=== PATIENT | male | born 1965 | race Caucasian/White ===

== ENCOUNTER 2024-06-15 15:07 | Observation (INO) | payer OTHER ==
[2024-06-15] MEDS ORDERED: LORazepam 2 MG/ML INJ IV PRN ×2 (15:58)
--- NOTE | 2024-06-15 16:00 | ED ---
Alcohol HPI - General Chief Complaint: Alcohol Stated Complaint: ETOH Time Seen by Provider: 06/15/24 15:23 Source: patient, EMS, RN notes reviewed, old records reviewed Mode of arrival: EMS Limitations: no limitations - History of Present Illness Initial Comments: This is a 58-year-old male to the ER for evaluation of supposed alcohol intoxication and he is afraid of impending withdrawal. 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 and does have history of stroke MD Complaint: alcohol intoxication, alcohol withdrawal Last Drink: just FLUX MIXER -: days(s) Previous Visits for Alcohol Intoxication?: Yes Recent Trauma: Yes Associated Symptoms: denies other symptoms Treatments Prior to Arrival: none Chronic Alcohol Use: Yes - Related Data Home Medications Medication Instructions Recorded Confirmed Aspirin EC [Ecotrin Low Dose] 81 mg PO DAILY 06/15/24 06/15/24 Previous Rx's Medication Instructions Recorded Nicotine 21Mg/24Hr Patch [Habitrol] 1 patch TRANSDERM DAILY patch 06/19/24 Pantoprazole [Protonix] 40 mg PO AC-BRKFST 15 Days #15 tab 06/19/24 chlordiazePOXIDE HCl [Librium] 20 mg PO TID #12 cap 06/19/24 cloNIDine HCL [Catapres] 0.1 mg PO TID #90 tab 06/19/24 lisinopriL [Zestril] 10 mg PO DAILY #30 tab 06/19/24 Allergies Allergy/AdvReac Type Severity Reaction Status Date / Time amoxicillin Allergy Anaphylaxis Verified 06/15/24 16:30 Review of Systems ROS Statement: Those systems with pertinent positive or pertinent negative responses have been documented in the HPI. ROS Other: All systems not noted in ROS Statement are negative. Past Medical History Past Medical History: COPD, Hypertension History of Any Multi-Drug Resistant Organisms: None Reported Past Psychological History: No Psychological Hx Reported Smoking Status: Current every day smoker Past Alcohol Use History: Daily, Heavy Past Drug Use History: None Reported General Exam Limitations: no limitations General appearance: appears intoxicated, anxious Head exam: Present: atraumatic, normocephalic, normal inspection Eye exam: Present: normal appearance, PERRL, EOMI. Absent: scleral icterus, conjunctival injection, periorbital swelling ENT exam: Present: normal exam, mucous membranes moist Neck exam: Present: normal inspection. Absent: tenderness, meningismus, lymphadenopathy Respiratory exam: Present: normal lung sounds bilaterally. Absent: respiratory distress, wheezes, rales, rhonchi, stridor Cardiovascular Exam: Present: regular rate, normal rhythm, normal heart sounds. Absent: systolic murmur, diastolic murmur, rubs, gallop, clicks GI/Abdominal exam: Present: soft, normal bowel sounds. Absent: distended, tenderness, guarding, rebound, rigid Extremities exam: Present: normal inspection, full ROM, normal capillary refill. Absent: tenderness, pedal edema, joint swelling, calf tenderness Back exam: Present: normal inspection Neurological exam: Present: alert, oriented X3, CN II-XII intact Psychiatric exam: Present: normal affect, normal mood Skin exam: Present: warm, dry, intact, normal color. Absent: rash Course Vital Signs 06/15/24 06/15/24 06/15/24 15:29 17:27 20:00 Temperature 98.3 F Pulse Rate 102 H 105 H 101 H Respiratory 20 20 18 Rate Blood Pressure 143/89 129/79 150/97 O2 Sat by Pulse 98 97 97 Oximetry 06/15/24 06/16/24 06/16/24 23:00 06:33 08:59 Temperature 97.7 F Pulse Rate 88 82 95 Respiratory 18 18 20 Rate Blood Pressure 162/88 185/114 192/95 O2 Sat by Pulse 97 97 96 Oximetry 06/16/24 06/16/24 06/16/24 11:00 13:00 15:25 Temperature Pulse Rate 74 93 91 Respiratory 20 20 20 Rate Blood Pressure 185/92 157/95 158/98 O2 Sat by Pulse 96 96 96 Oximetry 06/16/24 16:50 Temperature Pulse Rate 70 Respiratory 20 Rate Blood Pressure 174/86 O2 Sat by Pulse 96 Oximetry - Reevaluation(s) Reevaluation #1: 06/15/24 16:00 Medical records reviewed Reevaluation #2: 06/15/24 16:00 Patient symptoms unchanged Reevaluation #3: 06/15/24 19:06 Patient has been informed of results and questions answered Reevaluation #4: Was pt. sent in by a medical professional or institution (, PA, GREEN CHAIN OFFBEARER, urgent care, hospital, or intermediate...) When possible be specific @ -no Did you speak to anyone other than the patient for history (EMS, parent, family, police, friend...)? What history was obtained from this source @ -no Did you review nursing and triage notes (agree or disagree)? Why? @ -agree Are old charts reviewed (outside hosp., previous admission, EMS record, old EKG, old radiological studies, urgent care reports/EKG's, intermediate records)? Report findings @ -yes Differential Diagnosis (chest pain, altered mental status, abdominal pain women, abdominal pain men, vaginal bleeding, weakness, fever, dyspnea, syncope, headache, dizziness, GI bleed, back pain, seizure, CVA, palpatations, mental health, musculoskeletal)? @ -prior EKG interpreted by me (3pts min.). @ -yes X-rays interpreted by me (1pt min.). @ -no CT interpreted by me (1pt min.). @ -no U/S interpreted by me (1pt. min.). @ -no What testing was considered but not performed or refused? (CT, X-rays, U/S, labs)? Why? @ -none What meds were considered but not given or refused? Why? @ -none Did you discuss the management of the patient with other professionals (professionals i.e. , PA, [employer] CH[employer] OFFBEARER, lab, RT, psych nurse, addiction social worker, masking machine feeder, teacher, nuclear security officer, case manager specialist)? Give summary @ -no Was smoking cessation discussed for >3mins.? @ -no Was critical care preformed (if so, how long)? @ -no Were there social determinants of health that impacted care today? How? (Homelessness, low income, unemployed, alcoholism, drug addiction, transportation, low edu. Level, literacy, decrease access to med. care, long-term, rehab)? @ -none Was there de-escalation of care discussed even if they declined (Discuss DNR or withdrawal of care, Hospice)? DNR status @ -no What co-morbidities impacted this encounter? (DM, HTN, Smoking, COPD, CAD, Cancer, CVA, ARF, Chemo, Hep., AIDS, mental health diagnosis, sleep apnea, morbid obesity)? @ -none Was patient admitted / discharged? Hospital course, mention meds given and route, prescriptions, significant lab abnormalities, going to OR and other pertinent info. @ - 58 male to ER for alcohol withdrawal. Patient will be admitted for significant alcohol withdrawal tachycardia dehydration and abnormal labs Admitted Undiagnosed new problem with uncertain prognosis? @ -no Drug Therapy requiring intensive monitoring for toxicity (Heparin, Nitro, Insulin, Cardizem)? @ -no Were any procedures done? @ -no Diagnosis/symptom? @ -Alcohol withdrawal tachycardia and dehydration Acute, or Chronic, or Acute on Chronic? @ -Acute Uncomplicated (without systemic symptoms) or Complicated (systemic symptoms)? @ -Complicated Side effects of treatment? @ -no Exacerbation, Progression, or Severe Exacerbation? @ -exacerbation Poses a threat to life or bodily function? How? (Chest pain, [place], [place], pneumonia, PE, COPD, DKA, ARF, appy, cholecystitis, CVA, Diverticulitis, Homicidal, Suicidal, threat to staff... and all critical care pts) @ -yes withdrawal - Consultations Consultation #1: With Dr. Khoury who agrees to admit this patient Medical Decision Making - Medical Decision Making 58 male to ER for alcohol withdrawal. Patient will be admitted for significant alcohol withdrawal tachycardia dehydration and abnormal labs - Lab Data Result diagrams: 06/16/24 05:56 06/17/24 05:26 Lab Results 06/15/24 06/15/24 Range/Units 15:54 15:54 WBC 7.6 (3.8-10.6) k/uL RBC 3.87 L (4.30-5.90) m/uL Hgb 13.5 (13.0-17.5) gm/dL Hct 38.9 L (39.0-53.0) % MCV 100.7 H (80.0-100.0) fL MCH 35.0 (25.0-35.0) pg MCHC 34.8 (31.0-37.0) g/dL RDW 12.4 (11.5-15.5) % Plt Count 351 (150-450) k/uL MPV 7.8 Neutrophils % 59 % Lymphocytes % 30 % Monocytes % 8 % Eosinophils % 1 % Basophils % 0 % Neutrophils # 4.5 (1.3-7.7) k/uL Lymphocytes # 2.3 (1.0-4.8) k/uL Monocytes # 0.6 (0-1.0) k/uL Eosinophils # 0.1 (0-0.7) k/uL Basophils # 0.0 (0-0.2) k/uL Sodium 131 L (137-145) mmol/L Potassium 3.2 L (3.5-5.1) mmol/L Chloride 93 L (98-107) mmol/L Carbon Dioxide 23 (22-30) mmol/L Anion Gap 15 mmol/L BUN 9 (9-20) mg/dL Creatinine 0.64 L (0.66-1.25) mg/dL Est GFR (CKD-EPI)AfAm >90 (>60 ml/min/1.73 sqM) Est GFR (CKD-EPI)NonAf >90 (>60 ml/min/1.73 sqM) Glucose 146 H (74-99) mg/dL Calcium 9.4 (8.4-10.2) mg/dL Phosphorus 2.3 L (2.5-4.5) mg/dL Magnesium 1.8 (1.6-2.3) mg/dL Total Bilirubin 0.8 (0.2-1.3) mg/dL AST 41 (17-59) U/L ALT 26 (4-49) U/L Alkaline Phosphatase 113 (38-126) U/L Total Protein 7.1 (6.3-8.2) g/dL Albumin 4.7 (3.5-5.0) g/dL Lipase 90 (23-300) U/L Serum Alcohol 184 mg/dL - EKG Data -: EKG Interpreted by Me (EKG is sinus tachycardia 109 VT 157 QRS 106 QTc 439) Disposition Clinical Impression: Alcohol withdrawal syndrome, Alcoholic intoxication, Alcohol withdrawal delirium Disposition: ADMITTED IP TO THIS HOSP Condition: Fair
[2024-06-15 16:12] LABS: Basophils % (A) 0 %; Eosinophils # (A) 0.1 k/uL (0-0.7); Eosinophils % (A) 1 %; HCT 38.9 % (39.0-53.0); HGB 13.5 gm/dL (13.0-17.5); Lymphocytes # (A) 2.3 k/uL (1.0-4.8); Lymphocytes % (A) 30 %; MCHC 34.8 g/dL (31.0-37.0); MCV 100.7 fL (80.0-100.0); Mean Platelet Volume 7.8; Monocytes # (A) 0.6 k/uL (0-1.0); Monocytes % (A) 8 %; Neutrophils # (A) 4.5 k/uL (1.3-7.7); Neutrophils % (A) 59 %; Platelet Count 351 k/uL (150-450); RBC 3.87 m/uL (4.30-5.90); RDW 12.4 % (11.5-15.5); WBC 7.6 k/uL (3.8-10.6)
[2024-06-15 16:24] LABS: ALT 26 U/L (4-49); AST 41 U/L (17-59); African American GFR (CKD) >90 (>60 ml/min/1.73 sqM); Albumin 4.7 g/dL (3.5-5.0); Alkaline Phosphatase 113 U/L (38-126); Anion Gap 15 mmol/L; Blood Urea Nitrogen 9 mg/dL (9-20); Calcium 9.4 mg/dL (8.4-10.2); Carbon Dioxide 23 mmol/L (22-30); Chloride 93 mmol/L (98-107); Glucose 146 mg/dL (74-99); Lipase 90 U/L (23-300); Magnesium 1.8 mg/dL (1.6-2.3); Non-African American GFR(CKD) >90 (>60 ml/min/1.73 sqM); Phosphorus 2.3 mg/dL (2.5-4.5); Potassium 3.2 mmol/L (3.5-5.1); Sodium 131 mmol/L (137-145); Total Bilirubin 0.8 mg/dL (0.2-1.3); Total Protein 7.1 g/dL (6.3-8.2)
[2024-06-15 17:07] LABS: Alcohol 184 mg/dL
[2024-06-15] MEDS: LORazepam 2 MG/ML INJ IV STA (17:26)
[2024-06-15] MEDS: SODIUM CHLORIDE 0.9% 1,000 ML IV STA ×2 (17:27)
[2024-06-15] MEDS: SODIUM CHLORIDE 0.9% 500 ML 500 ML IV STA (17:27)
[2024-06-15] MEDS: MAGNESIUM OXIDE 400 MG TAB PO STA (18:29)
[2024-06-15] MEDS: POTASSIUM BICARBONATE/CIT AC 20 MEQ TABLET.EFF PO ONE (18:29)
[2024-06-15] MEDS ORDERED: NALOXONE 0.4 MG/ML 1 ML VIAL IV PRN (19:05)
[2024-06-15] MEDS: SODIUM CHLORIDE 0.9% 1,000 ML IV SCH (19:43)
[2024-06-15] MEDS: NICOTINE 21MG/24HR PATCH TRANSDERM SCH (20:07)
[2024-06-15] MEDS: PANTOPRAZOLE 40 MG/10 ML VIAL IV SCH (20:08)
[2024-06-15] MEDS: LORazepam 1 MG TAB PO PRN (20:16)
[2024-06-16] MEDS: ASPIRIN 81 MG PO SCH (08:56)
[2024-06-16] MEDS: LISINOPRIL-HCTZ 10-12.5 MG 1 EACH TAB PO SCH (08:56)
[2024-06-16] MEDS: LORazepam 1 MG TAB PO PRN ×2 (09:11→21:35)
[2024-06-16 10:40] LABS: Basophils # (A) 0.03 X 10*3/uL (0.00-0.10); Basophils % (A) 0.4 %; Eosinophils # (A) 0.14 X 10*3/uL (0.04-0.35); Eosinophils % (A) 1.7 %; HCT 34.5 % (39.6-50.0); HGB 12.3 g/dL (13.0-17.0); Lymphocytes # (A) 2.94 X 10*3/uL (0.90-5.00); Lymphocytes % (A) 35.9 %; MCH 35.3 pg (27.0-32.0); MCHC 35.7 g/dL (32.0-37.0); MCV 99.1 FL (80.0-97.0); Monocytes # (A) 0.81 X 10*3/uL (0.20-1.00); Monocytes % (A) 9.9 %; NRBC Per 100 WBC 0 X 10*3/uL (0.00-0.01); Neutrophils # (A) 4.26 X 10*3/uL (1.80-7.70); Neutrophils % (A) 51.9 %; Platelet Count 346 X 10*3/uL (140-440); RBC 3.48 X 10*6/uL (4.40-5.60); RDW 12.8 % (11.5-14.5)
--- NOTE | 2024-06-16 11:19 | P.HPIM ---
History of Present Illness Patient is 58-year-old male came in with for alcohol intoxication. Patient drinks about 1 gallon of hard liquor every day used to drink little bit less until 10 days ago. Patient had alcohol withdrawals in the past. Patient is presently not having any withdrawals last drink was around 2 AM today morning. Patient is willing to quit alcohol. Patient is awake alert sober at this time. REVIEW OF SYSTEMS: All other systems are negative except those mentioned in the HPI PHYSICAL EXAMINATION: GENERAL: The patient is alert and oriented x3, not in any acute distress. Well developed, well nourished. HEENT: Pupils are round and equally reacting to light. EOMI. No scleral icterus. No conjunctival pallor. Normocephalic, atraumatic. No pharyngeal erythema. No thyromegaly. CARDIOVASCULAR: S1 and S2 present. No murmurs, rubs, or gallops. PULMONARY: Chest is clear to auscultation, no wheezing or crackles. ABDOMEN: Soft, nontender, nondistended, normoactive bowel sounds. No palpable organomegaly. MUSCULOSKELETAL: No joint swelling or deformity. EXTREMITIES: No cyanosis, clubbing, or pedal edema. NEUROLOGICAL: Gross neurological examination did not reveal any focal deficits. SKIN: No rashes. Assessment and plan -Alcohol abuse: Counseling was provided social work will be consulted to provide him with resources for alcohol rehabilitation -Alcohol withdrawal patient will be on Ativan CIWA protocol -Hyponatremia: Secondary to hydrochlorothiazide which will be discontinued patient will be continued on lisinopril -Elevated blood pressure and heart rate secondary alcohol withdrawal patient was started on clonidine for this blood pressure he may not need to continue this at home -Hypokalemia: Secondary to hydrochlorothiazide potassium will be replaced -Hypertension management as mentioned above -Nicotine use: Counseling was provided -COPD without any acute exacerbation DVT prophylaxis: Early ambulation Past Medical History Past Medical History: COPD, Hypertension History of Any Multi-Drug Resistant Organisms: None Reported Past Psychological History: No Psychological Hx Reported Smoking Status: Current every day smoker Past Alcohol Use History: Daily, Heavy Past Drug Use History: None Reported Medications and Allergies Home Medications Medication Instructions Recorded Confirmed Type Aspirin EC [Ecotrin Low Dose] 81 mg PO DAILY 06/15/24 06/15/24 History Lisinopril-Hctz 10-12.5 mg 1 tab PO DAILY 06/15/24 06/15/24 History [Zestoretic 10-12.5] Allergies Allergy/AdvReac Type Severity Reaction Status Date / Time amoxicillin Allergy Anaphylaxis Verified 06/15/24 16:30 Physical Exam Vitals: Vital Signs Temp Pulse Resp BP Pulse Ox 06/16/24 11:00 74 20 185/92 96 06/16/24 08:59 95 20 192/95 96 06/16/24 06:33 97.7 F 82 18 185/114 97 06/15/24 23:00 88 18 162/88 97 06/15/24 20:00 101 H 18 150/97 97 06/15/24 17:27 105 H 20 129/79 97 06/15/24 15:29 98.3 F 102 H 20 143/89 98 Intake and Output 06/15/24 06/16/24 06/16/24 22:59 06:59 14:59 Other: Weight 74.843 kg Results CBC & Chem 7: 06/16/24 05:56 06/15/24 15:54 Labs: Abnormal Lab Results - Last 24 Hours (Table) 06/15/24 06/15/24 06/16/24 Range/Units 15:54 15:54 05:56 RBC 3.87 L 3.48 L (4.30-5.90) m/uL Hgb 12.3 L (13.0-17.0) g/dL Hct 38.9 L 34.5 L (39.0-53.0) % MCV 100.7 H 99.1 H (80.0-100.0) fL MCH 35.3 H (27.0-32.0) pg Sodium 131 L (137-145) mmol/L Potassium 3.2 L (3.5-5.1) mmol/L Chloride 93 L (98-107) mmol/L Creatinine 0.64 L (0.66-1.25) mg/dL Glucose 146 H (74-99) mg/dL Phosphorus 2.3 L (2.5-4.5) mg/dL
[2024-06-16 11:20] LABS: ALT 22 U/L (10-49); AST 30 U/L (14-35); Albumin 3.9 g/dL (3.8-4.9); Albumin/Globulin Ratio 1.95 Ratio (1.60-3.17); Alkaline Phosphatase 105 U/L (41-126); BUN/Creat Ratio 12.62 Ratio (12.00-20.00); Blood Urea Nitrogen 10.1 mg/dL (9.0-27.0); Calcium 8.6 mg/dL (8.7-10.3); Carbon Dioxide 26.5 mmol/L (21.6-31.8); Chloride 96 mmol/L (96-109); Glucose 97 mg/dL (70-110); Magnesium 1.8 mg/dL (1.5-2.4); Phosphorus 3.3 mg/dL (2.4-5.1); Potassium 4.1 mmol/L (3.5-5.5); Sodium 134 mmol/L (135-145); Total Bilirubin 0.8 mg/dL (0.3-1.2); Total Protein 5.9 g/dL (6.2-8.2)
[2024-06-16] MEDS: cloNIDine HCL 0.1 MG TAB PO SCH (15:25)
[2024-06-16] MEDS: POTASSIUM BICARBONATE/CIT AC 20 MEQ TABLET.EFF PO ONE (18:30)
[2024-06-16] MEDS: LORazepam 0.5 MG TAB PO PRN (20:00)
[2024-06-17] MEDS: lisinopriL 10 MG TAB PO SCH (08:07)
[2024-06-17] MEDS: PANTOPRAZOLE 40 MG TABLET PO SCH (08:08)
[2024-06-17 10:33] LABS: Calcium 9.2 mg/dL (8.7-10.3); Carbon Dioxide 23.8 mmol/L (21.6-31.8); Chloride 100 mmol/L (96-109); Glucose 103 mg/dL (70-110); Potassium 4.4 mmol/L (3.5-5.5); Sodium 135 mmol/L (135-145)
[2024-06-17] MEDS: LORazepam 2 MG/ML INJ IV PRN (11:07)
--- NOTE | 2024-06-17 14:23 | P.PN ---
Subjective Progress Note Date: 06/17/24 Patient is 58-year-old male came in with for alcohol intoxication. Patient drinks about 1 gallon of hard liquor every day used to drink little bit less until 10 days ago. Patient had alcohol withdrawals in the past. Patient is presently not having any withdrawals last drink was around 2 AM today morning. Patient is willing to quit alcohol. Patient is awake alert sober at this time. 06/17/2024 Patient is evaluated today resting in bed he admits to feeling shaky diaphoretic nauseous and overall not feeling well. He appears to be going through significant withdrawals at this time and we will continue to monitor this patient at least 1 more night in the hospital. He has a nicotine patch in plac e. Electrolytes have normalized. On IV Ativan CIWA protocol requiring at least 1 mg IV every couple hours today. Review of Systems Constitutional: Denied any fatigue denied any fever. Cardio vascular: denied any chest pain, palpitations Gastrointestinal: denied any nausea, vomiting, diarrhea Pulmonary: Denied any shortness of breath cough Neurologic denied any new focal deficits All inpatient medications were reviewed and appropriate changes in these medications as dictated in the interval history and assessment and plan. PHYSICAL EXAMINATION: GENERAL: The patient is alert and oriented x3, not in any acute distress. Well developed, well nourished. HEENT: Pupils are round and equally reacting to light. EOMI. No scleral icterus. No conjunctival pallor. Normocephalic, atraumatic. No pharyngeal erythema. No thyromegaly. CARDIOVASCULAR: S1 and S2 present. No murmurs, rubs, or gallops. PULMONARY: Chest is clear to auscultation, no wheezing or crackles. ABDOMEN: Soft, nontender, nondistended, normoactive bowel sounds. No palpable organomegaly. MUSCULOSKELETAL: No joint swelling or deformity. EXTREMITIES: No cyanosis, clubbing, or pedal edema. NEUROLOGICAL: Gross neurological examination did not reveal any focal deficits. Tremors with arms extended SKIN: No rashes. Assessment and plan -Alcohol abuse: Counseling was provided social work will be consulted to provide him with resources for alcohol rehabilitation -Alcohol withdrawal patient will be on Ativan CIWA protocol -Hyponatremia: Secondary to hydrochlorothiazide which will be discontinued patient will be continued on lisinopril -Elevated blood pressure and heart rate secondary alcohol withdrawal patient was started on clonidine for this blood pressure he may not need to continue this at home. Blood pressure is better controlled at this time. -Hypokalemia: Secondary to hydrochlorothiazide with supplementation potassium level has normalized. -Hypertension management as mentioned above -Nicotine use: Counseling was provided -COPD without any acute exacerbation DVT prophylaxis: Early ambulation The impression and plan of care has been dictated by Jessica Chi, Nurse Practitioner as directed. Dr. Scotty MD I have performed a history and physical examination and medical decision making of this patient, discussed the same with the dictator, and agree with the dictators assessment and plan as written, documented as a scribe. Based on total visit time, I have performed more than 50% of this visit. Objective - Vital Signs Vital signs: Vital Signs Temp 97.4 F L 06/17/24 07:00 Pulse 77 06/17/24 07:00 Resp 16 06/17/24 07:00 BP 145/74 06/17/24 07:00 Pulse Ox 98 06/17/24 07:00 FiO2 Intake & Output 06/16/24 06/17/24 06/17/24 18:59 06:59 18:59 Intake Total 118 Balance 118 Weight 74.843 kg Intake: Oral 118 Other: Voiding Method Toilet Toilet # Voids 2 - Labs CBC & Chem 7: 06/16/24 05:56 06/17/24 05:26 Assessment and Plan Time with Patient: Less than 30
--- NOTE | 2024-06-19 04:20 | P.PN ---
Subjective Progress Note Date: 06/18/24 06/16/24 Patient is 58-year-old male came in with for alcohol intoxication. Patient drinks about 1 gallon of hard liquor every day used to drink little bit less until 10 days ago. Patient had alcohol withdrawals in the past. Patient is presently not having any withdrawals last drink was around 2 AM today morning. Patient is willing to quit alcohol. Patient is awake alert sober at this time. 06/17/2024 Patient is evaluated today resting in bed he admits to feeling shaky diaphoretic nauseous and overall not feeling well. He appears to be going through significant withdrawals at this time and we will continue to monitor this patient at least 1 more night in the hospital. He has a nicotine patch in place. Electrolytes have normalized. On IV Ativan CIWA protocol requiring at least 1 mg IV every couple hours today. 06/18/2024 Patient is seen in follow-up today continues to have some signs of withdrawal with continued shaking. Patient reports he is eating a little better and has been getting up and walking to the bathroom. Patient continues on CIWA protocol and has received IV Ativan and will add Librium taper. Discussed with the patient about rehab and planning on going to an inpatient alcohol rehab in [place]. Social work to consult to provide resources for patient to call and schedule intake appointment. Patient is afebrile and denies chest pain or shortness of breath. Review of Systems Constitutional: Denied any fatigue denied any fever. Cardio vascular: denied any chest pain, palpitations Gastrointestinal: denied any nausea, vomiting, diarrhea Pulmonary: Denied any shortness of breath cough Neurologic denied any new focal deficits All inpatient medications were reviewed and appropriate changes in these medications as dictated in the interval history and assessment and plan. PHYSICAL EXAMINATION: GENERAL: The patient is alert and oriented x3, a little anxious on exam. Well developed, well nourished. Appears older than stated age HEENT: Pupils are round and equally reacting to light. EOMI. No scleral icterus. No conjunctival pallor. Normocephalic, atraumatic. No pharyngeal erythema. No thyromegaly. CARDIOVASCULAR: S1 and S2 present. No murmurs, rubs, or gallops. PULMONARY: Chest is clear to auscultation, no wheezing or crackles. ABDOMEN: Soft, nontender, nondistended, normoactive bowel sounds. No palpable organomegaly. MUSCULOSKELETAL: No joint swelling or deformity. EXTREMITIES: No cyanosis, clubbing, or pedal edema. NEUROLOGICAL: Gross neurological examination did not reveal any focal deficits. Tremors noted with arms extended SKIN: No rashes. Assessment and plan -Alcohol abuse: Counseling was provided, social work will be consulted to provide him with resources for alcohol rehabilitation. Patient reports he went to [place] previously and had a stroke there and is looking into inpatient alcohol rehab in [place] -Alcohol withdrawal, patient will continued on Ativan CIWA protocol, will add li brium -Hyponatremia: Secondary to hydrochlorothiazide which will be discontinued patient will be continued on lisinopril -Elevated blood pressure and heart rate secondary alcohol withdrawal patient was started on clonidine for this blood pressure he may not need to continue this at home. Blood pressure is better controlled at this time. -Hypokalemia: Secondary to hydrochlorothiazide with supplementation potassium level has normalized. -Hypertension management as mentioned above -Nicotine use: Counseling was provided -COPD without any acute exacerbation DVT prophylaxis: Early ambulation Plan: Continue CIWA protocol and librium Encouraged increased activity as tolerated Social work to provide resources for inpatient alcohol rehab Plan for discharge in the next 24 hours. The impression and plan of care has been dictated by Sarah Georges, Nurse Practitioner as directed. Dr. Scotty MD I have performed a history and physical examination and medical decision making of this patient, discussed the same with the dictator, and agree with the dictators assessment and plan as written, documented as a scribe. Based on total visit time, I have performed more than 50% of this visit. Objective - Vital Signs Vital signs: Vital Signs Temp 97.5 F L 06/18/24 07:00 Pulse 70 06/18/24 07:00 Resp 17 06/18/24 07:00 BP 151/63 06/18/24 07:00 Pulse Ox 96 06/18/24 07:00 FiO2 Intake & Output 06/17/24 06/18/24 06/18/24 18:59 06:59 18:59 Intake Total 354 1120 236 Balance 354 1120 236 Intake: Oral 354 1120 236 Other: Voiding Method Toilet Toilet Toilet # Voids 5 3 - Labs CBC & Chem 7: 06/16/24 05:56 06/17/24 05:26
[2024-06-19 08:46] VITALS: BP 148/56; PULSE 67; RESP 16; TEMP 97.8
--- NOTE | 2024-06-23 15:09 | P.DS ---
Providers Date of admission: 06/15/24 19:05 Expected date of discharge: 06/19/24 Attending physician: Yoni Fajardo Primary care physician: Stated None Hospital Course: Final diagnosis -Alcohol abuse history with acute alcohol withdrawal with concerns of delirium tremens -Hyponatremia: Secondary to hydrochlorothiazide -Elevated blood pressure and heart rate secondary alcohol withdrawal patient was started on clonidine for this blood pressure he may not need to continue this at home. Blood pressure is better controlled at this time. -Hypokalemia: Secondary to hydrochlorothiazide with supplementation potassium level has normalized. -Hypertension management as mentioned above -Nicotine use: Counseling was provided -COPD without any acute exacerbation Discharge disposition Patient is being discharged in a stable condition with guarded prognosis to home. Patient will follow-up with primary care provider in the outpatient setting upon discharge. Patient is to continue with as scheduled. Patient is planning an intake appointment in [place] for inpatient alcohol rehab on discharge. Patient will continue Librium taper. Total time taken is greater than 35 minutes. Hospital course This is a 58-year-old male who was recently admitted with acute alcohol abuse with acute alcohol withdrawal with concerns of delirium tremens. Patient being monitored on CIWA protocol also started on Librium taper reports to feeling improved. Patient was having some uncontrolled blood pressures and also hyponatremia along with hypokalemia probably secondary to his hydrochlorothiazide which will be held and will continue lisinopril. Instructed to follow-up with primary care provider on discharge and monitor blood pressure by keeping a diary daily of readings for follow-up. Patient will continue a short Librium taper on dc. Currently no reports of chest pain, shortness of breath, or palpitations. Patient is afebrile. No reports of nausea or vomiting and patient is tolerating diet. Patient will be discharged home today. Guarded prognosis. Physical exam: Gen: This is a 58-year-old male who is awake, alert and oriented x 3, well- developed, well-nourished, elderly appearing HEENT: Head is atraumatic, normocephalic. Pupils equal, round. Sclerae is anicteric. NECK: Supple. No JVD. No lymphadenopathy. No thyromegaly. LUNGS: Clear to auscultation. No wheezes or rhonchi. No intercostal retractions. HEART: Regular rate and rhythm. No murmur. ABDOMEN: Soft. Bowel sounds are present. No masses. No tenderness. EXTREMITIES: No pedal edema. No calf tenderness. NEUROLOGICAL: Patient is awake, alert and oriented x3. Cranial nerves 2 through 12 are grossly intact. Please refer to medication reconciliation sheet for a list of medications. The impression and plan of care has been dictated by Sarah Georges, Nurse Practitioner as directed. Dr. Scotty MD I have performed a history and examination and MDM of this patient, discussed the same with the dictator, and agree with the dictator's assessment and plan as written ,documented as a scribe. Based on total visit time, I have performed more than 50% of the visit. Patient Condition at Discharge: Fair Plan - Discharge Summary Discharge Rx Participant: No New Discharge Prescriptions: New Nicotine 21Mg/24Hr Patch [Habitrol] 1 patch TRANSDERM DAILY patch cloNIDine HCL [Catapres] 0.1 mg PO TID #90 tab chlordiazePOXIDE HCl [Librium] 20 mg PO TID #12 cap Pantoprazole [Protonix] 40 mg PO AC-BRKFST 15 Days #15 tab lisinopriL [Zestril] 10 mg PO DAILY #30 tab Continue Aspirin EC [Ecotrin Low Dose] 81 mg PO DAILY Discontinued Lisinopril-Hctz 10-12.5 mg [Zestoretic 10-12.5] 1 tab PO DAILY Discharge Medication List Aspirin EC [Ecotrin Low Dose] 81 mg PO DAILY 06/15/24 [History] Nicotine 21Mg/24Hr Patch [Habitrol] 1 patch TRANSDERM DAILY patch 06/19/24 [Rx] Pantoprazole [Protonix] 40 mg PO AC-BRKFST 15 Days #15 tab 06/19/24 [Rx] chlordiazePOXIDE HCl [Librium] 20 mg PO TID #12 cap 06/19/24 [Rx] cloNIDine HCL [Catapres] 0.1 mg PO TID #90 tab 06/19/24 [Rx] lisinopriL [Zestril] 10 mg PO DAILY #30 tab 06/19/24 [Rx] Follow up Appointment(s)/Referral(s): Mahesh Ramos DO [REFERRING] - 1 Week (Call and make an appointment to establish) Activity/Diet/Wound Care/Special Instructions: Activity limited until follow-up Follow-up with primary care provider to establish on discharge Continue taking medications as prescribed Monitor blood pressure and keep a diary of all readings If blood pressure becomes too low and top number(systolic) is 110 or less, hold the Catapres and continue with just lisinopril Avoid alcohol and exposure to Follow-up outpatient with inpatient alcohol rehab Discharge/Stand Alone Forms: AA Meetings [facility] & 24 - [facility], AA Meetings [facility], Who Do I Call?, Community Resources, Outpatient Counseling, Inp Substance Abuse Facilities, Area PCPs Discharge Disposition: HOME SELF-CARE
== END 2024-06-19 12:35 | disposition home or self-care (01) ==
LOC: EC 15:07 → 6NMEDSUR 19:05
PROVIDERS: ADMIT Internal Medicine; ATTEND Internal Medicine
DX: F10.239 Alcohol dependence with withdrawal, unspecified (principal); F10.229 Alcohol dependence with intoxication, unspecified; E87.1 Hypo-osmolality and hyponatremia; E87.6 Hypokalemia; T50.2X5A Adverse effect of carbonic-anhydrase inhibitors, benzothiadiazides and other diuretics, initial encounter; I10 Essential (primary) hypertension; J44.9 Chronic obstructive pulmonary disease, unspecified; F17.200 Nicotine dependence, unspecified, uncomplicated; Z79.82 Long term (current) use of aspirin; Z86.73 Personal history of transient ischemic attack (TIA), and cerebral infarction without residual deficits; Z88.0 Allergy status to penicillin
CPT/HCPCS: 96376 ×2; 96361 ×3; 96374; 96375; 99285; 36415; 93005; 80053 ×2; 80048; 83690; 83735 ×2; 84100 ×2; 85025 ×2; G0378 ×5; G0480; S4990 ×4; J2060 ×2; J2470 ×2; 80320

== ENCOUNTER 2024-06-30 23:09 | Observation (INO) | payer OTHER ==
--- NOTE | 2024-07-01 00:15 | ED ---
Alcohol HPI - General Chief Complaint: Alcohol Stated Complaint: ETOH Time Seen by Provider: 06/30/24 23:21 Source: patient, EMS, RN notes reviewed Mode of arrival: EMS Limitations: no limitations - History of Present Illness Initial Comments: This is a 58-year-old male who presents emergency department via EMS for chief complaint of alcohol intoxication. Patient reports that his daughter called EMS to arrive at the patient's house as he was acting strange on the phone and is reported that he was hallucinating. Patient states that he drinks alcohol every day upwards of 1/5. States that he consumed over 1/5 of alcohol in addition to 424 ounce cans of beer. States that he also used drugs including cocaine and possibly crack. Patient states now that he feels mildly anxious. Has gone through alcohol withdrawal in the past, denies history of DTs. patient would like to go to rehab, - Related Data Home Medications Medication Instructions Recorded Confirmed Aspirin EC [Ecotrin Low Dose] 81 mg PO DAILY 06/15/24 06/15/24 Previous Rx's Medication Instructions Recorded Nicotine 21Mg/24Hr Patch [Habitrol] 1 patch TRANSDERM DAILY patch 06/19/24 Pantoprazole [Protonix] 40 mg PO AC-BRKFST 15 Days #15 tab 06/19/24 chlordiazePOXIDE HCl [Librium] 20 mg PO TID #12 cap 06/19/24 cloNIDine HCL [Catapres] 0.1 mg PO TID #90 tab 06/19/24 lisinopriL [Zestril] 10 mg PO DAILY #30 tab 06/19/24 Allergies Allergy/AdvReac Type Severity Reaction Status Date / Time amoxicillin Allergy Anaphylaxis Verified 06/30/24 23:13 Review of Systems ROS Statement: Those systems with pertinent positive or pertinent negative responses have been documented in the HPI. ROS Other: All systems not noted in ROS Statement are negative. Past Medical History Past Medical History: COPD, Hypertension History of Any Multi-Drug Resistant Organisms: None Reported Additional Past Surgical History / Comment(s): "piece of pancreas removed" Past Psychological History: No Psychological Hx Reported Smoking Status: Current every day smoker Past Alcohol Use History: Daily, Heavy Past Drug Use History: None Reported General Exam Limitations: no limitations General appearance: alert, in no apparent distress, appears intoxicated Head exam: Present: atraumatic, normocephalic, normal inspection Eye exam: Present: normal appearance, PERRL, EOMI. Absent: scleral icterus, conjunctival injection, periorbital swelling Respiratory exam: Present: normal lung sounds bilaterally. Absent: respiratory distress, wheezes, rales, rhonchi, stridor Cardiovascular Exam: Present: normal rhythm, tachycardia, normal heart sounds. Absent: systolic murmur, diastolic murmur, rubs, gallop, clicks GI/Abdominal exam: Present: soft, normal bowel sounds. Absent: distended, tenderness, guarding, rebound, rigid Extremities exam: Present: normal inspection, full ROM, normal capillary refill. Absent: tenderness, pedal edema, joint swelling, calf tenderness Back exam: Present: normal inspection Neurological exam: Present: alert, oriented X3, CN II-XII intact Course Vital Signs 06/30/24 07/01/24 07/01/24 23:10 00:00 03:00 Temperature 98.3 F Pulse Rate 118 H 113 H 117 H Respiratory 20 17 18 Rate Blood Pressure 186/91 157/77 170/93 O2 Sat by Pulse 99 97 96 Oximetry Medical Decision Making - Medical Decision Making Was pt. sent in by a medical professional or institution (, PA, COSTUMER, urgent care, hospital, or snf...) When possible be specific @ -No Did you speak to anyone other than the patient for history (EMS, parent, family, police, friend...)? What history was obtained from this source @ -No Did you review nursing and triage notes (agree or disagree)? Why? @ -I reviewed and agree with nursing and triage notes Were old charts reviewed (outside hosp., previous admission, EMS record, old EKG, old radiological studies, urgent care reports/EKG's, snf records)? Report findings @ -No old charts were reviewed Differential Diagnosis (chest pain, altered mental status, abdominal pain women, abdominal pain men, vaginal bleeding, weakness, fever, dyspnea, syncope, headache, dizziness, GI bleed, back pain, seizure, CVA, palpatations, mental health, musculoskeletal)? @ -Alcohol intoxication, alcohol abuse, drug abuse, this list not all inclusive EKG interpreted by me (3pts min.). @ -none X-rays interpreted by me (1pt min.). @ -None done CT interpreted by me (1pt min.). @ -None done U/S interpreted by me (1pt. min.). @ -None done What testing was considered but not performed or refused? (CT, X-rays, U/S, labs)? Why? @ -None What meds were considered but not given or refused? Why? @ -None Did you discuss the management of the patient with other professionals (professionals i.e. DrVasquez, PA, COSTUMER, lab, RT, psych nurse, professor of social work, boiler blower, teacher, penal officer, ed case manager)? Give summary @ -internal medicine team, [facility] in regard to admission who has accepted the patient. Was smoking cessation discussed for >3mins.? @ -No Was critical care preformed (if so, how long)? @ -No Were there social determinants of health that impacted care today? How? (Homelessness, low income, unemployed, alcoholism, drug addiction, transportation, low edu. Level, literacy, decrease access to med. care, long term, rehab)? @ -No Was there de-escalation of care discussed even if they declined (Discuss DNR or withdrawal of care, Hospice)? DNR status @ -No What co-morbidities impacted this encounter? (DM, HTN, Smoking, COPD, CAD, Cancer, CVA, ARF, Chemo, Hep., AIDS, mental health diagnosis, sleep apnea, morbid obesity)? @ -None Was patient admitted / discharged? Hospital course, mention meds given and route, prescriptions, significant lab abnormalities, going to OR and other pertinent info. @ -Admitted. 58-year-old male with alcohol intoxication. Patient is noted to be tachycardic on arrival with a heart rate of 118 and hypertensive with a blood pressure 186/91. Patient currently states that he feels mildly anxious however this is common for him. Dates that he normally drinks over 1/5 of liquor per day. Is provided with dose of oral Ativan and IV fluid bolus pending laboratory results. He is agree with this plan. Patient's serum alcohol level is elevated to 344 that correlates to a time of sober at 1500. Patient's urine toxicology report reveals positive for benzodiazepines and cocaine. Patient will be admitted to internal medicine for alcohol intoxication with referral to social work. Case discussed with Dr. Hernandez Undiagnosed new problem with uncertain prognosis? @ -No Drug Therapy requiring intensive monitoring for toxicity (Heparin, Nitro, I nsulin, Cardizem)? @ -No Were any procedures done? @ -No Diagnosis/symptom? @ -alcohol abuse, alcohol intoxication Acute, or Chronic, or Acute on Chronic? @ -Acute Uncomplicated (without systemic symptoms) or Complicated (systemic symptoms)? @ -complicated Side effects of treatment? @ -No Exacerbation, Progression, or Severe Exacerbation? @ -No Poses a threat to life or bodily function? How? (Chest pain, [place], [place], pneumonia, PE, COPD, DKA, ARF, appy, cholecystitis, CVA, Diverticulitis, Homicidal, Suicidal, threat to staff... and all critical care pts) @ -No - Lab Data Result diagrams: 07/01/24 00:16 07/01/24 00:16 Lab Results 07/01/24 07/01/24 07/01/24 Range/Units 00:16 00:16 00:53 WBC 9.4 (3.8-10.6) k/uL RBC 3.92 L (4.30-5.90) m/uL Hgb 13.6 (13.0-17.5) gm/dL Hct 39.5 (39.0-53.0) % MCV 100.8 H (80.0-100.0) fL MCH 34.6 (25.0-35.0) pg MCHC 34.4 (31.0-37.0) g/dL RDW 12.8 (11.5-15.5) % Plt Count 375 (150-450) k/uL MPV 7.4 Neutrophils % 45 % Lymphocytes % 47 % Monocytes % 4 % Eosinophils % 2 % Basophils % 1 % Neutrophils # 4.2 (1.3-7.7) k/uL Lymphocytes # 4.4 (1.0-4.8) k/uL Monocytes # 0.4 (0-1.0) k/uL Eosinophils # 0.2 (0-0.7) k/uL Basophils # 0.1 (0-0.2) k/uL Sodium 142 (137-145) mmol/L Potassium 4.3 (3.5-5.1) mmol/L Chloride 105 (98-107) mmol/L Carbon Dioxide 30 (22-30) mmol/L Anion Gap 7 mmol/L BUN 11 (9-20) mg/dL Creatinine 0.71 (0.66-1.25) mg/dL Est GFR (CKD-EPI)AfAm >90 (>60 ml/min/1.73 sqM) Est GFR (CKD-EPI)NonAf >90 (>60 ml/min/1.73 sqM) Glucose 125 H (74-99) mg/dL Calcium 9.4 (8.4-10.2) mg/dL Phosphorus Cancelled Magnesium 1.8 (1.6-2.3) mg/dL Total Bilirubin 0.2 (0.2-1.3) mg/dL AST 39 (17-59) U/L ALT 23 (4-49) U/L Alkaline Phosphatase 124 (38-126) U/L Total Protein 7.0 (6.3-8.2) g/dL Albumin 4.4 (3.5-5.0) g/dL Lipase 76 (23-300) U/L Urine Opiates Screen Not Detected (NotDetected) Ur Oxycodone Screen Not Detected (NotDetected) Urine Methadone Screen Not Detected (NotDetected) Ur Barbiturates Screen Not Detected (NotDetected) U Tricyclic Antidepress Not Detected (NotDetected) Ur Phencyclidine Scrn Not Detected (NotDetected) Ur Amphetamines Screen Not Detected (NotDetected) U Methamphetamines Scrn Not Detected (NotDetected) U Benzodiazepines Scrn Detected H (NotDetected) Urine Cocaine Screen Detected H (NotDetected) U Marijuana (THC) Screen Not Detected (NotDetected) Serum Alcohol 334 H* mg/dL Disposition Clinical Impression: Alcohol abuse, Alcohol intoxication Disposition: ADMITTED IP TO THIS [facility] Condition: Stable Referrals: None,Stated [Primary Care Provider] - 1-2 days Decision to Admit Reason: Admit from EC Decision Date: 07/01/24 Decision Time: 03:19
[2024-07-01] MEDS: LORazepam 1 MG TAB PO STA ×2 (00:30→03:21)
[2024-07-01] MEDS: SODIUM CHLORIDE 0.9% 1,000 ML IV STA (00:31)
[2024-07-01 01:03] LABS: Basophils # (A) 0.1 k/uL (0-0.2); Basophils % (A) 1 %; Eosinophils # (A) 0.2 k/uL (0-0.7); Eosinophils % (A) 2 %; HCT 39.5 % (39.0-53.0); HGB 13.6 gm/dL (13.0-17.5); Lymphocytes # (A) 4.4 k/uL (1.0-4.8); Lymphocytes % (A) 47 %; MCH 34.6 pg (25.0-35.0); MCHC 34.4 g/dL (31.0-37.0); MCV 100.8 fL (80.0-100.0); Mean Platelet Volume 7.4; Monocytes # (A) 0.4 k/uL (0-1.0); Monocytes % (A) 4 %; Neutrophils # (A) 4.2 k/uL (1.3-7.7); Neutrophils % (A) 45 %; Platelet Count 375 k/uL (150-450); RBC 3.92 m/uL (4.30-5.90); RDW 12.8 % (11.5-15.5); WBC 9.4 k/uL (3.8-10.6)
[2024-07-01 01:21] LABS: ALT 23 U/L (4-49); AST 39 U/L (17-59); African American GFR (CKD) >90 (>60 ml/min/1.73 sqM); Albumin 4.4 g/dL (3.5-5.0); Alkaline Phosphatase 124 U/L (38-126); Anion Gap 7 mmol/L; Blood Urea Nitrogen 11 mg/dL (9-20); Calcium 9.4 mg/dL (8.4-10.2); Carbon Dioxide 30 mmol/L (22-30); Chloride 105 mmol/L (98-107); Glucose 125 mg/dL (74-99); Lipase 76 U/L (23-300); Magnesium 1.8 mg/dL (1.6-2.3); Non-African American GFR(CKD) >90 (>60 ml/min/1.73 sqM); Potassium 4.3 mmol/L (3.5-5.1); Sodium 142 mmol/L (137-145); Total Bilirubin 0.2 mg/dL (0.2-1.3)
[2024-07-01 01:54] LABS: Alcohol 334 mg/dL
[2024-07-01 02:01] LABS: Amphetamine Screen,Urine Not Detected (NotDetected); Barbiturate Screen,Urine Not Detected (NotDetected); Benzodiazepines Screen,Urine Detected (NotDetected); Cocaine Screen,Urine Detected (NotDetected); Methadone Screen, Urine Not Detected (NotDetected); Opiate Screen,Urine Not Detected (NotDetected); Oxycodone Screen, Urine Not Detected (NotDetected); Phencyclidine Screen,Urine Not Detected (NotDetected); Tricyclic Antidepressant,Urine Not Detected (NotDetected); Urn Cannabinoid Scrn Not Detected (NotDetected)
[2024-07-01] MEDS ORDERED: LORazepam 2 MG/ML INJ IV PRN (03:08)
[2024-07-01] MEDS ORDERED: NALOXONE 0.4 MG/ML 1 ML VIAL IV PRN (03:19)
[2024-07-01] MEDS: SODIUM CHLORIDE 0.9% 1,000 ML IV SCH (04:37)
[2024-07-01] MEDS: IBUPROFEN 400 MG TAB PO PRN (05:50)
[2024-07-01] MEDS: LORazepam 1 MG TAB PO PRN ×2 (05:51→08:12)
[2024-07-01] MEDS: NICOTINE 21MG/24HR PATCH TRANSDERM SCH (08:53)
[2024-07-01] MEDS: ASPIRIN 81 MG PO SCH (08:53)
[2024-07-01] MEDS: PANTOPRAZOLE 40 MG TABLET PO SCH (08:53)
[2024-07-01] MEDS: lisinopriL 10 MG TAB PO SCH (08:53)
[2024-07-01] MEDS: cloNIDine HCL 0.1 MG TAB PO SCH (09:47)
--- NOTE | 2024-07-01 13:34 | P.HPIM ---
History of Present Illness H&P Date: 07/01/24 History of present illness; patient 58-year-old gentleman with past medical history significant for hypertension who was brought to the ER for alcohol intoxication. Patient was brought to the ER after daughter called EMS to check on him as he was acting strange on the phone. Patient admitted to drinking heavily and was using cocaine and marijuana. Patient admitted to drinking 1/5 of alcohol in addition to beer. Denies any suicidal or homicidal thoughts. Patient denies any nausea or vomiting. There is no complaint orthopnea or PND denies any chest pain or shortness of breath. Because of alcohol intoxication, patient brought to the ER Initial lab work done in the ER showed WBC 9.4, hemoglobin 13.6, sodium 142, potassium 4.3, BUN 11, creatinine 0.71, calcium 9.4, magnesium 1.8, bilirubin 0.2 Urine drug screen positive for benzos and cocaine. Serum alcohol level is 334 Patient admitted to internal medicine service REVIEW OF SYSTEMS: CONSTITUTIONAL: No fever, no malaise, no fatigue. HEENT: No recent visual problems or hearing problems. Denied any sore throat. CARDIOVASCULAR: No chest pain, orthopnea, PND, no palpitations, no syncope. PULMONARY: No shortness of breath, no cough, no hemoptysis. GASTROINTESTINAL: No diarrhea, no nausea, no vomiting, no abdominal pain. NEUROLOGICAL: No headaches, no weakness, no numbness. HEMATOLOGICAL: Denies any bleeding or petechiae. GENITOURINARY: Denies any burning micturition, frequency, or urgency. MUSCULOSKELETAL/RHEUMATOLOGICAL: Denies any joint pain, swelling, or any muscle pain. ENDOCRINE: Denies any polyuria or polydipsia. The rest of the 14-point review of systems is negative. PHYSICAL EXAMINATION: GENERAL: The patient is alert and oriented x3, not in any acute distress shaky, anxious HEENT: Pupils are round and equally reacting to light. EOMI. No scleral icterus. No conjunctival pallor. Normocephalic, atraumatic. No pharyngeal erythema. No thyromegaly. CARDIOVASCULAR: S1 and S2 present. No murmurs, rubs, or gallops. PULMONARY: Chest is clear to auscultation, no wheezing or crackles. ABDOMEN: Soft, nontender, nondistended, normoactive bowel sounds. No palpable organomegaly. MUSCULOSKELETAL: No joint swelling or deformity. EXTREMITIES: No cyanosis, clubbing, or pedal edema. NEUROLOGICAL: Gross neurological examination did not reveal any focal deficits. SKIN: No rashes. Assessment and plan Alcohol intoxication Impending alcohol detox Polysubstance abuse Monitor vital signs Monitor CBC Monitor CMP Ordered CIWA protocol Ordered high-dose thiamine and folic acid Ordered antiemetics Ordered IV fluids Resume home meds Labs and medication were reviewed.. Continue same treatment. Continue with symptomatic treatment. Resume home medication. Monitor labs and vitals. DVT and GI prophylaxis. Further recommendations as per clinical course of the patient Dictation was produced using [employer] dictation software. please excuse any grammatical, word or spelling errors. Past Medical History Past Medical History: COPD, Hypertension History of Any Multi-Drug Resistant Organisms: None Reported Additional Past Surgical History / Comment(s): "piece of pancreas removed" Past Psychological History: No Psychological Hx Reported Smoking Status: Current every day smoker Past Alcohol Use History: Daily, Heavy Past Drug Use History: None Reported Medications and Allergies Home Medications Medication Instructions Recorded Confirmed Type Aspirin EC [Ecotrin Low Dose] 81 mg PO DAILY 06/15/24 07/01/24 History Nicotine 21Mg/24Hr Patch [Habitrol] 1 patch TRANSDERM DAILY patch 06/19/24 07/01/24 Rx Pantoprazole [Protonix] 40 mg PO AC-BRKFST 15 Days #15 tab 06/19/24 07/01/24 Rx cloNIDine HCL [Catapres] 0.1 mg PO TID #90 tab 06/19/24 07/01/24 Rx lisinopriL [Zestril] 10 mg PO DAILY #30 tab 06/19/24 07/01/24 Rx methocarbamoL [Robaxin-750] 750 mg PO Q6H PRN 07/01/24 07/01/24 History Allergies Allergy/AdvReac Type Severity Reaction Status Date / Time amoxicillin Allergy Anaphylaxis Verified 07/01/24 12:07 Physical Exam Vitals: Vital Signs Temp Pulse Pulse Resp BP BP Pulse Ox 07/01/24 09:46 98 186/91 07/01/24 08:06 98 192/98 07/01/24 08:00 101 H 07/01/24 07:00 98.6 F 102 H 18 194/97 95 07/01/24 04:51 98.6 F 112 H 16 171/98 97 07/01/24 04:38 98.3 F 113 H 18 165/94 96 07/01/24 03:00 117 H 18 170/93 96 07/01/24 00:00 113 H 17 157/77 97 06/30/24 23:10 98.3 F 118 H 20 186/91 99 Intake and Output 06/30/24 07/01/24 07/01/24 22:59 06:59 14:59 Intake Total 118 Balance 118 Intake: Oral 118 Other: # Voids 1 Weight 68.039 kg Results CBC & Chem 7: 07/01/24 00:16 07/01/24 00:16 Labs: Abnormal Lab Results - Last 24 Hours (Table) 07/01/24 07/01/24 07/01/24 Range/Units 00:16 00:16 00:53 RBC 3.92 L (4.30-5.90) m/uL MCV 100.8 H (80.0-100.0) fL Glucose 125 H (74-99) mg/dL U Benzodiazepines Scrn Detected H (NotDetected) Urine Cocaine Screen Detected H (NotDetected) Serum Alcohol 334 H* mg/dL
[2024-07-01] MEDS ORDERED: THIAMINE 100 MG TAB PO SCH (16:00)
[2024-07-01] MEDS: THIAMINE 500 MG in SODIUM CHLORIDE 0.9% 50 ML IVPB SCH (17:07)
[2024-07-02] MEDS: LORazepam 2 MG/ML INJ IV PRN ×2 (01:08→14:17)
[2024-07-02] MEDS: MELATONIN 5 MG TABLET PO PRN (01:39)
[2024-07-02] MEDS: amLODIPine 5 MG TAB PO STA (01:39)
[2024-07-02] MEDS: amLODIPine 5 MG TAB PO SCH (08:54)
[2024-07-02] MEDS: FOLIC ACID 1 MG TAB PO SCH (08:54)
[2024-07-02] MEDS: LORazepam 1 MG TAB PO PRN (10:32)
--- NOTE | 2024-07-02 13:39 | P.PN ---
Subjective Progress Note Date: 07/02/24 patient 58-year-old gentleman with past medical history significant for hypertension who was brought to the ER for alcohol intoxication. Patient was brought to the ER after daughter called EMS to check on him as he was acting strange on the phone. Patient admitted to drinking heavily and was using coca ine and marijuana. Patient admitted to drinking 1/5 of alcohol in addition to beer. Denies any suicidal or homicidal thoughts. Patient denies any nausea or vomiting. There is no complaint orthopnea or PND denies any chest pain or shortness of breath. Because of alcohol intoxication, patient brought to the ER Initial lab work done in the ER showed WBC 9.4, hemoglobin 13.6, sodium 142, potassium 4.3, BUN 11, creatinine 0.71, calcium 9.4, magnesium 1.8, bilirubin 0.2 Urine drug screen positive for benzos and cocaine. Serum alcohol level is 334 Patient admitted to internal medicine service 07/02. Patient seen and examined. Last CIWA score was 3. Patient blood pressure has been elevated. REVIEW OF SYSTEMS: CONSTITUTIONAL: No fever, no malaise,. CARDIOVASCULAR: No chest pain, no palpitations, no syncope. PULMONARY: No shortness of breath, no cough, GASTROINTESTINAL: No diarrhea, no nausea, no vomiting, no abdominal pain. NEUROLOGICAL: No headaches, no weakness, PHYSICAL EXAMINATION: GGENERAL: The patient is alert and oriented x3, not in any acute distress shaky, anxious HEENT: Pupils are round and equally reacting to light. EOMI. No scleral icterus. No conjunctival pallor. Normocephalic, atraumatic. No pharyngeal erythema. No thyromegaly. CARDIOVASCULAR: S1 and S2 present. No murmurs, rubs, or gallops. PULMONARY: Chest is clear to auscultation, no wheezing or crackles. ABDOMEN: Soft, nontender, nondistended, normoactive bowel sounds. No palpable organomegaly. MUSCULOSKELETAL: No joint swelling or deformity. EXTREMITIES: No cyanosis, clubbing, or pedal edema. NEUROLOGICAL: Gross neurological examination did not reveal any focal deficits. SKIN: No rashes. Assessment and plan Alcohol intoxication Impending alcohol detox Polysubstance abuse Hypertension Monitor vital signs Monitor CBC Monitor CMP Continue CIWA protocol Continue high-dose thiamine and folic acid Continue IV fluids continue antiemetics Resume lisinopril, started patient on Norvasc Labs and medication were reviewed.. Continue same treatment. Continue with symptomatic treatment. Resume home medication. Monitor labs and vitals. DVT and GI prophylaxis. Further recommendations as per clinical course of the patient Dictation was produced using [employer] dictation software. please excuse any grammatical, word or spelling errors. Objective - Vital Signs Vital signs: Vital Signs Temp 97.9 F 07/02/24 07:00 Pulse 68 07/02/24 07:00 Resp 15 07/02/24 07:00 BP 175/97 07/02/24 07:00 Pulse Ox 98 07/02/24 07:00 FiO2 Intake & Output 07/01/24 07/02/24 07/02/24 19:59 06:59 18:59 Intake Total Output Total Balance Intake: Oral Output: Urine Other: # Voids # Bowel Movements - Labs CBC & Chem 7: 07/01/24 00:16 07/01/24 00:16
[2024-07-02] MEDS: hydrALAZINE HCL 20 MG/ML 1 ML VIAL IVP PRN (15:32)
[2024-07-02] MEDS: LORazepam 0.5 MG TAB PO PRN (20:21)
[2024-07-03 07:14] VITALS: BP 164/94; TEMP 97.8
[2024-07-03 09:09] VITALS: PULSE 72; RESP 16
--- NOTE | 2024-07-04 14:00 | P.DS ---
Providers Date of admission: 07/01/24 03:19 Attending physician: Genet Pastrana Primary care physician: Stated None Hospital Course: Final Diagnosis Alcohol intoxication Impending alcohol detox Polysubstance abuse Hypertension Discharge Disposition Stable for discharge home with overall guarded prognosis secondary to his chronic history of alcoholism. Patient's withdrawal symptoms have significantly improved he is agreeing to maintain abstinence from alcohol. We discharged on folic acid and thiamine supplementation. He will continue all same home medications and will be given 3 days of oral Ativan therapy. Was referred to Dr. Mahesh Meadows for family care and will need to make an appointment on discharge. Hospital Course patient 58-year-old gentleman with past medical history significant for hypertension who was brought to the ER for alcohol intoxication. Patient was brought to the ER after daughter called EMS to check on him as he was acting strange on the phone. Patient admitted to drinking heavily and was using cocaine and marijuana. Patient admitted to drinking 1/5 of alcohol in addition to beer. Denies any suicidal or homicidal thoughts. Patient denies any nausea or vomiting. There is no complaint orthopnea or PND denies any chest pain or shortness of breath. Because of alcohol intoxication, patient brought to the ER. Initial lab work done in the ER showed WBC 9.4, hemoglobin 13.6, sodium 142, potassium 4.3, BUN 11, creatinine 0.71, calcium 9.4, magnesium 1.8, bilirubin 0.2. Urine drug screen positive for benzos and cocaine. Serum alcohol level is 334. Patient admitted to internal medicine service started on IV Ativan CIWA protocol as well as scheduled Librium. Patient was monitored for 2 days had significant improvement in his alcohol withdrawal symptoms. His last CIWA score is around 5 and he is requiring Ativan about every 8 hours. He is tolerating diet. He would like to be discharged home today he discussed the importance of maintaining abstinence from alcohol and other substance abuse and patient v erbalizes agreement and states that he would like to discharge home with oral Ativan and his family support. Please see medication reconciliation for a list of current medications. Thank you for allowing us to participate in the care of this patient. The impression and plan of care has been dictated by Jessica Chi, Nurse Practitioner as directed. Dr. Scotty MD I have performed a history and physical examination and medical decision making of this patient, discussed the same with the dictator, and agree with the dictators assessment and plan as written, documented as a scribe. Based on total visit time, I have performed more than 50% of this visit. Patient Condition at Discharge: Stable Plan - Discharge Summary Discharge Rx Participant: No New Discharge Prescriptions: New Folic Acid 1 mg PO DAILY #30 tab amLODIPine [Norvasc] 5 mg PO DAILY #30 tab LORazepam [Ativan] 1 mg PO BID PRN #6 tab PRN Reason: Agitation Or Acute Anxiety Thiamine [Vitamin B-1] 100 mg PO DAILY #30 tablet Continue Aspirin EC [Ecotrin Low Dose] 81 mg PO DAILY Nicotine 21Mg/24Hr Patch [Habitrol] 1 patch TRANSDERM DAILY patch cloNIDine HCL [Catapres] 0.1 mg PO TID #90 tab Pantoprazole [Protonix] 40 mg PO AC-BRKFST 15 Days #15 tab lisinopriL [Zestril] 10 mg PO DAILY #30 tab methocarbamoL [Robaxin-750] 750 mg PO Q6H PRN PRN Reason: Muscle Spasm Discharge Medication List Aspirin EC [Ecotrin Low Dose] 81 mg PO DAILY 06/15/24 [History] Nicotine 21Mg/24Hr Patch [Habitrol] 1 patch TRANSDERM DAILY patch 06/19/24 [Rx] Pantoprazole [Protonix] 40 mg PO AC-BRKFST 15 Days #15 tab 06/19/24 [Rx] cloNIDine HCL [Catapres] 0.1 mg PO TID #90 tab 06/19/24 [Rx] lisinopriL [Zestril] 10 mg PO DAILY #30 tab 06/19/24 [Rx] methocarbamoL [Robaxin-750] 750 mg PO Q6H PRN 07/01/24 [History] Folic Acid 1 mg PO DAILY #30 tab 07/03/24 [Rx] LORazepam [Ativan] 1 mg PO BID PRN #6 tab 07/03/24 [Rx] Thiamine [Vitamin B-1] 100 mg PO DAILY #30 tablet 07/03/24 [Rx] amLODIPine [Norvasc] 5 mg PO DAILY #30 tab 07/03/24 [Rx] Follow up Appointment(s)/Referral(s): None,Stated [Primary Care Provider] - 1-2 days Mahesh Ramos DO [REFERRING] - 3 Days (Call to make an appt and establish care. ) Activity/Diet/Wound Care/Special Instructions: Avoid alcohol and other substance while using ativan. Discharge/Stand Alone Forms: AA Jessie Ramirez, Outpatient Counseling, Area PCPs Discharge Disposition: HOME SELF-CARE
== END 2024-07-03 14:43 | disposition home or self-care (01) ==
LOC: EC 23:09 → 6NMEDSUR 07-01 03:19
PROVIDERS: ADMIT Internal Medicine; ATTEND Internal Medicine
DX: F10.229 Alcohol dependence with intoxication, unspecified (principal); F10.239 Alcohol dependence with withdrawal, unspecified; I10 Essential (primary) hypertension; Y90.8 Blood alcohol level of 240 mg/100 ml or more; F17.200 Nicotine dependence, unspecified, uncomplicated; F14.10 Cocaine abuse, uncomplicated; F12.10 Cannabis abuse, uncomplicated; Z79.82 Long term (current) use of aspirin; Z79.899 Other long term (current) drug therapy; Z88.0 Allergy status to penicillin
CPT/HCPCS: 96376; 96361 ×4; 96365; 96366; 96375; 99285; 36415; 80053; 83690; 83735; 84100; 85025; 80306; G0378 ×3; G0480; S4990 ×2; J2060; J0360; J3411 ×3; 80320

== ENCOUNTER 2024-07-17 17:02 | Inpatient (IN) | payer OTHER ==
--- NOTE | 2024-07-17 18:00 | ED ---
Alcohol HPI - General Source: patient, RN notes reviewed Mode of arrival: ambulatory Limitations: no limitations <Zoë Cobb - Last Filed: 07/17/24 17:58> - General Source: patient, RN notes reviewed, old records reviewed Mode of arrival: ambulatory Limitations: no limitations - History of Present Illness MD Complaint: alcohol withdrawal <Elizabeth Maldonado - Last Filed: 07/17/24 21:10> - General Chief Complaint: Alcohol Stated Complaint: ALCOHOL WITHDRAWS Time Seen by Provider: 07/17/24 17:20 - History of Present Illness Initial Comments: Quick [id number] male presenting to the emergency department for chief complaint of alcohol abuse and withdrawal. Patient states his last drink was approximately 4 to 5 hours prior to arrival. Patient has gone through withdrawal in the past. He is interested in going to rehab. (Zoë Cobb) 58-year-old male presented to the ER with a chief complaint of alcohol intoxication with impending withdrawal. Patient states he typically drinks 1/5 to a gallon of alcohol daily. He believes his last drink was about 4 hours ago. Patient is interested in entering rehabilitation at [facility]. He states he has gone through withdrawal in the past and reports tremors and mild hallucin ations. Denies seizures. Patient is also complaining of left-sided chest discomfort. He states he woke up with it this morning. Denies any radiation. He does report mild wheezing but states he has COPD and is still currently smoking a pack a day. Denies any shortness of breath. No cardiac history. No dizziness, lightheadedness, abdominal pain, constipation/diarrhea, urinary complaints or other complaints. (Elizabeth Maldonado) - Related Data Home Medications Medication Instructions Recorded Confirmed Aspirin EC [Ecotrin Low Dose] 81 mg PO DAILY 06/15/24 07/01/24 methocarbamoL [Robaxin-750] 750 mg PO Q6H PRN 07/01/24 07/01/24 Previous Rx's Medication Instructions Recorded Nicotine 21Mg/24Hr Patch [Habitrol] 1 patch TRANSDERM DAILY patch 06/19/24 Pantoprazole [Protonix] 40 mg PO AC-BRKFST 15 Days #15 tab 06/19/24 cloNIDine HCL [Catapres] 0.1 mg PO TID #90 tab 06/19/24 lisinopriL [Zestril] 10 mg PO DAILY #30 tab 06/19/24 Folic Acid 1 mg PO DAILY #30 tab 07/03/24 LORazepam [Ativan] 1 mg PO BID PRN #6 tab 07/03/24 Thiamine [Vitamin B-1] 100 mg PO DAILY #30 tablet 07/03/24 amLODIPine [Norvasc] 5 mg PO DAILY #30 tab 07/03/24 Allergies Allergy/AdvReac Type Severity Reaction Status Date / Time amoxicillin Allergy Anaphylaxis Verified 07/17/24 17:06 Review of Systems ROS Other: All systems not noted in ROS Statement are negative. <Zoë Cobb - Last Filed: 07/17/24 17:58> ROS Other: All systems not noted in ROS Statement are negative. <Elizabeth Maldonado - Last Filed: 07/17/24 21:10> ROS Statement: Those systems with pertinent positive or pertinent negative responses have been documented in the HPI. Past Medical History Past Medical History: COPD, Hypertension History of Any Multi-Drug Resistant Organisms: None Reported Additional Past Surgical History / Comment(s): "piece of pancreas removed" Past Psychological History: No Psychological Hx Reported Smoking Status: Current every day smoker Past Alcohol Use History: Daily, Heavy Past Drug Use History: None Reported <Zoë Cobb - Last Filed: 07/17/24 17:58> General Exam Limitations: no limitations <Zoë Cobb - Last Filed: 07/17/24 17:58> Limitations: no limitations General appearance: alert, in no apparent distress Respiratory exam: Present: wheezes (Bilaterally all lung alberto) Cardiovascular Exam: Present: normal rhythm, tachycardia, normal heart sounds GI/Abdominal exam: Present: soft, normal bowel sounds. Absent: distended, tenderness, guarding, rebound, rigid Neurological exam: Present: alert, oriented X3, CN II-XII intact Skin exam: Present: warm, dry, intact, normal color. Absent: rash <Elizabeth Maldonado - Last Filed: 07/17/24 21:10> - General Exam Comments Initial Comments: Visual Physical Exam Vital signs reviewed General: Well-appearing, nontoxic, no acute distress. Head: Normocephalic, atraumatic Eyes: PERRLA, EOMI ENT: Airway patent Chest: Nonlabored breathing Skin: No visual rash, normal skin tone Neuro: Alert and oriented 3 Musculoskeletal: No gross abnormalities (Zoë Cobb) Course <Elizabeth Maldonaod - Last Filed: 07/17/24 21:10> Vital Signs 07/17/24 07/17/24 17:03 19:00 Temperature 99.1 F Pulse Rate 95 93 Respiratory 18 20 Rate Blood Pressure 180/86 159/80 O2 Sat by Pulse 99 99 Oximetry - Reevaluation(s) Reevaluation #1: 07/17/24 21:02 Case discussed with [facility], Alicia Ortiz, for admission. (Elizabeth Maldonado) Medical Decision Making <Zoë Cobb - Last Filed: 07/17/24 17:58> - Lab Data Result diagrams: 07/17/24 18:22 07/17/24 18:22 - EKG Data -: EKG Interpreted by [place] - Radiology Data Radiology results: report reviewed, image reviewed <Elizabeth Maldonado - Last Filed: 07/17/24 21:10> - Medical Decision Making I completed the quick note portion of this chart signed Zoë Cobb PA-C (Zoë Cobb) Was pt. sent in by a medical professional or institution (KAYE Ca, PROJECT DIRECTOR, urgent care, hospital, or intermediate...) When possible be specific @ -No Did you speak to anyone other than the patient for history (EMS, parent, family, police, friend...)? What history was obtained from this source @ -No Did you review nursing and triage notes (agree or disagree)? Why? @ -I reviewed and agree with nursing and triage notes Were old charts reviewed (outside hosp., previous admission, EMS record, old EKG, old radiological studies, urgent care reports/EKG's, intermediate records)? Report findings @ -No old charts were reviewed Differential Diagnosis (chest pain, altered mental status, abdominal pain women, abdominal pain men, vaginal bleeding, weakness, fever, dyspnea, syncope, headache, dizziness, GI bleed, back pain, seizure, CVA, palpatations, mental health, musculoskeletal)? @ -Differential Chest Pain:Stable Angina, Unstable Angina, STEMI, NSTEMI Aortic Dissection, Pneumothorax, Musculoskeletal, Esophageal Spasm GERD, Cholecystitis, Pancreatitis, Zoster, this is not meant to be an all-inclusive list. EKG interpreted by me (3pts min.). @ -As above X-rays interpreted by me (1pt min.). @ -CXR interpreted me negative for acute cardiopulmonary process. COPD sanchez ges. CT interpreted by me (1pt min.). @ -None done U/S interpreted by me (1pt. min.). @ -None done What testing was considered but not performed or refused? (CT, X-rays, U/S, labs)? Why? @ -None What meds were considered but not given or refused? Why? @ -None Did you discuss the management of the patient with other professionals (professionals i.e. DrVasquez, PA, PROJECT DIRECTOR, lab, RT, psych nurse, addiction social worker, sharepoint application architect, teacher, correctional probation officer, case assistant)? Give summary @ -Yes, case discussed with Alicia Ortiz [facility] for admission. Was smoking cessation discussed for >3mins.? @ -No Was critical care preformed (if so, how long)? @ -No Were there social determinants of health that impacted care today? How? (Homelessness, low income, unemployed, alcoholism, drug addiction, transportation, low edu. Level, literacy, decrease access to med. care, half-way, rehab)? @ -Alcoholism Was there de-escalation of care discussed even if they declined (Discuss DNR or withdrawal of care, Hospice)? DNR status @ -No What co-morbidities impacted this encounter? (DM, HTN, Smoking, COPD, CAD, Cancer, CVA, ARF, Chemo, Hep., AIDS, mental health diagnosis, sleep apnea, morbid obesity)? @ -Alcoholism Was patient admitted / discharged? Hospital course, mention meds given and route, prescriptions, significant lab abnormalities, going to OR and other pertinent info. @ -Admitted. 58-year-old male presenting to the ER for alcohol withdrawal and chest discomfort. Patient is seeking rehabilitation for alcohol. History and physical exam completed. Vitals remarkable for temperature 99.1, heart rate 95, respiratory rate 18, blood pressure 180/86, oxygen saturation 99% on room air. Patient in no signs of acute distress. Patient is anxious on exam. Exam remarkable for bilateral wheezing likely due to patient's COPD. Otherwise benign exam. Cardiac workup will be obtained as patient is complaining of chest discomfort. Initial troponin undetectable and serial pending. EKG showing sinus tachycardia with no evidence of infarct. Tachycardia believed to be due to alcohol withdrawal. CBC unimpressive. CMP remarkable for sodium 133, potassium 3.8, chloride 102, carbon oxide 19. Serum alcohol 80. CIWA 12 and Ativan protocol initiated. Patient received 1 L IV fluids in the ER. Patient also given DuoNeb due to wheezing. Admission considered for cardiac rule out and alcohol withdrawal. HEART score 3. Case was discussed with [facility], Alicia Ortiz, for admimssion. Social work on consult. Patient is agreeable for admission. Patient admitted in stable condition. Case discussed with the atte nding of Dr. Duvall. Undiagnosed new problem with uncertain prognosis? @ -No Drug Therapy requiring intensive monitoring for toxicity (Heparin, Nitro, Insulin, Cardizem)? @ -No Were any procedures done? @ -No Diagnosis/symptom? @ -Alcohol intoxication with pending withdrawal/chest discomfort Acute, or Chronic, or Acute on Chronic? @ -Acute Uncomplicated (without systemic symptoms) or Complicated (systemic symptoms)? @ -Complicated Side effects of treatment? @ -No Exacerbation, Progression, or Severe Exacerbation? @ -No Poses a threat to life or bodily function? How? (Chest pain, [place], [place], pneumonia, PE, COPD, DKA, ARF, appy, cholecystitis, CVA, Diverticulitis, Homicidal, S uicidal, threat to staff... and all critical care pts) @ -Yes, alcohol intoxication with withdrawal can lead to seizures. Chest discomfort can also lead to ACS which can lead to lethal cardiac arrhythmias. (Elizabeth Maldonado) - Lab Data Lab Results 07/17/24 07/17/24 07/17/24 Range/Units 18:22 18:22 18: WBC 9.0 (3.8-10.6) k/uL RBC 4.03 L (4.30-5.90) m/uL Hgb 13.6 (13.0-17.5) gm/dL Hct 40.7 (39.0-53.0) % MCV 100.8 H (80.0-100.0) fL MCH 33.6 (25.0-35.0) pg MCHC 33.4 (31.0-37.0) g/dL RDW 12.9 (11.5-15.5) % Plt Count 353 (150-450) k/uL MPV 7.6 Neutrophils % 63 % Lymphocytes % 26 % Monocytes % 6 % Eosinophils % 3 % Basophils % 1 % Neutrophils # 5.7 (1.3-7.7) k/uL Lymphocytes # 2.4 (1.0-4.8) k/uL Monocytes # 0.5 (0-1.0) k/uL Eosinophils # 0.2 (0-0.7) k/uL Basophils # 0.0 (0-0.2) k/uL PT (10.0-12.5) sec INR (<1.2) APTT (22.0-30.0) sec Sodium 133 L (137-145) mmol/L Potassium 3.8 (3.5-5.1) mmol/L Chloride 102 (98-107) mmol/L Carbon Dioxide 19 L (22-30) mmol/L Anion Gap 12 mmol/L BUN 6 L (9-20) mg/dL Creatinine 0.64 L (0.66-1.25) mg/dL Est GFR (CKD-EPI)AfAm >90 (>60 ml/min/1.73 sqM) Est GFR (CKD-EPI)NonAf >90 (>60 ml/min/1.73 sqM) Glucose 85 (74-99) mg/dL Calcium 9.4 (8.4-10.2) mg/dL Magnesium 1.9 (1.6-2.3) mg/dL Total Bilirubin 0.5 (0.2-1.3) mg/dL AST 29 (17-59) U/L ALT 15 (4-49) U/L Alkaline Phosphatase 95 (38-126) U/L Troponin I (0.000-0.034) ng/mL Total Protein 7.5 (6.3-8.2) g/dL Albumin 4.7 (3.5-5.0) g/dL Amylase 44 (30-110) U/L Lipase 98 (23-300) U/L Urine Opiates Screen Not Detected (NotDetected) Ur Oxycodone Screen Not Detected (NotDetected) Urine Methadone Screen Not Detected (NotDetected) Ur Barbiturates Screen Not Detected (NotDetected) U Tricyclic Antidepress Not Detected (NotDetected) Ur Phencyclidine Scrn Not Detected (NotDetected) Ur Amphetamines Screen Not Detected (NotDetected) U Methamphetamines Scrn Not Detected (NotDetected) U Benzodiazepines Scrn Detected H (NotDetected) Urine Cocaine Screen Not Detected (NotDetected) U Marijuana (THC) Screen Not Detected (NotDetected) Serum Alcohol 80 mg/dL 07/17/24 07/17/24 Range/Units 18:48 18:48 WBC (3.8-10.6) k/uL RBC (4.30-5.90) m/uL Hgb (13.0-17.5) gm/dL Hct (39.0-53.0) % MCV (80.0-100.0) fL MCH (25.0-35.0) pg MCHC (31.0-37.0) g/dL RDW (11.5-15.5) % Plt Count (150-450) k/uL MPV Neutrophils % % Lymphocytes % % Monocytes % % Eosinophils % % Basophils % % Neutrophils # (1.3-7.7) k/uL Lymphocytes # (1.0-4.8) k/uL Monocytes # (0-1.0) k/uL Eosinophils # (0-0.7) k/uL Basophils # (0-0.2) k/uL PT 10.2 (10.0-12.5) sec INR 0.9 (<1.2) APTT 26.0 (22.0-30.0) sec Sodium (137-145) mmol/L Potassium (3.5-5.1) mmol/L Chloride (98-107) mmol/L Carbon Dioxide (22-30) mmol/L Anion Gap mmol/L BUN (9-20) mg/dL Creatinine (0.66-1.25) mg/dL Est GFR (CKD-EPI)AfAm (>60 ml/min/1.73 sqM) Est GFR (CKD-EPI)NonAf (>60 ml/min/1.73 sqM) Glucose (74-99) mg/dL Calcium (8.4-10.2) mg/dL Magnesium (1.6-2.3) mg/dL Total Bilirubin (0.2-1.3) mg/dL AST (17-59) U/L ALT (4-49) U/L Alkaline Phosphatase (38-126) U/L Troponin I <0.012 (0.000-0.034) ng/mL Total Protein (6.3-8.2) g/dL Albumin (3.5-5.0) g/dL Amylase (30-110) U/L Lipase (23-300) U/L Urine Opiates Screen (NotDetected) Ur Oxycodone Screen (NotDetected) Urine Methadone Screen (NotDetected) Ur Barbiturates Screen (NotDetected) U Tricyclic Antidepress (NotDetected) Ur Phencyclidine Scrn (NotDetected) Ur Amphetamines Screen (NotDetected) U Methamphetamines Scrn (NotDetected) U Benzodiazepines Scrn (NotDetected) Urine Cocaine Screen (NotDetected) U Marijuana (THC) Screen (NotDetected) Serum Alcohol mg/dL - EKG Data EKG Comments: EKG taken at 18: 27 showing sinus tachycardia no ST segment or T wave abnormali ties. Ventricular rate 101, AK interval 150, QRS duration 101, QT/QTc 371/429. (Elizabeth Maldonado) Disposition <Zoë Cobb - Last Filed: 07/17/24 17:58> Time of Disposition: 21:02 <Elizabeth Maldonado - Last Filed: 07/17/24 21:10> Clinical Impression: Alcohol abuse, Chest pain, Alcohol withdrawal, Alcoholic intoxication Disposition: ADMITTED IP TO THIS [facility] Condition: Stable Referrals: Mahesh Ramos DO [Primary Care Provider] - 1-2 days
[2024-07-17] MEDS ORDERED: LORazepam 2 MG/ML INJ IV PRN (18:19)
[2024-07-17 18:31] LABS: Basophils % (A) 1 %; Eosinophils # (A) 0.2 k/uL (0-0.7); Eosinophils % (A) 3 %; HCT 40.7 % (39.0-53.0); HGB 13.6 gm/dL (13.0-17.5); Lymphocytes # (A) 2.4 k/uL (1.0-4.8); Lymphocytes % (A) 26 %; MCH 33.6 pg (25.0-35.0); MCHC 33.4 g/dL (31.0-37.0); MCV 100.8 fL (80.0-100.0); Mean Platelet Volume 7.6; Monocytes # (A) 0.5 k/uL (0-1.0); Monocytes % (A) 6 %; Neutrophils # (A) 5.7 k/uL (1.3-7.7); Neutrophils % (A) 63 %; Platelet Count 353 k/uL (150-450); RBC 4.03 m/uL (4.30-5.90); RDW 12.9 % (11.5-15.5)
[2024-07-17] MEDS: SODIUM CHLORIDE 0.9% 1,000 ML IV STA (18:44)
[2024-07-17 18:48] LABS: ALT 15 U/L (4-49); AST 29 U/L (17-59); African American GFR (CKD) >90 (>60 ml/min/1.73 sqM); Albumin 4.7 g/dL (3.5-5.0); Alcohol 80 mg/dL; Alkaline Phosphatase 95 U/L (38-126); Amylase 44 U/L (30-110); Anion Gap 12 mmol/L; Blood Urea Nitrogen 6 mg/dL (9-20); Calcium 9.4 mg/dL (8.4-10.2); Carbon Dioxide 19 mmol/L (22-30); Chloride 102 mmol/L (98-107); Glucose 85 mg/dL (74-99); Lipase 98 U/L (23-300); Magnesium 1.9 mg/dL (1.6-2.3); Non-African American GFR(CKD) >90 (>60 ml/min/1.73 sqM); Potassium 3.8 mmol/L (3.5-5.1); Sodium 133 mmol/L (137-145); Total Bilirubin 0.5 mg/dL (0.2-1.3); Total Protein 7.5 g/dL (6.3-8.2)
[2024-07-17] MEDS: THIAMINE 100 MG/ML 2 ML VIAL IM STA (18:49)
[2024-07-17 18:53] LABS: Amphetamine Screen,Urine Not Detected (NotDetected); Barbiturate Screen,Urine Not Detected (NotDetected); Benzodiazepines Screen,Urine Detected (NotDetected); Cocaine Screen,Urine Not Detected (NotDetected); Methadone Screen, Urine Not Detected (NotDetected); Opiate Screen,Urine Not Detected (NotDetected); Oxycodone Screen, Urine Not Detected (NotDetected); Phencyclidine Screen,Urine Not Detected (NotDetected); Tricyclic Antidepressant,Urine Not Detected (NotDetected); Urn Cannabinoid Scrn Not Detected (NotDetected)
--- NOTE | 2024-07-17 19:26 | XR ---
EXAMINATION TYPE: XR chest 2V DATE OF EXAM: 07/17/2024 7:15 PM COMPARISON: Previous chest radiograph 11/09/2016. CLINICAL INDICATION: Male, 58 years old with history of chest pain; [facility] TECHNIQUE: XR chest 2V Frontal and lateral views of the chest. FINDINGS: Cardiac silhouette within normal limits for size. No acute focal consolidation. No pleural effusion or pneumothorax. Lungs mildly hyperinflated bilater ally. No acute osseous abnormality. IMPRESSION: No acute abnormality in the chest. [facility], , 07/17/2024 7:23 PM
[2024-07-17 19:34] LABS: INR 0.9 (<1.2); Prothrombin Time 10.2 sec (10.0-12.5)
[2024-07-17] MEDS: LORazepam 2 MG/ML INJ IV PRN ×2 (20:38→23:25)
[2024-07-17] MEDS ORDERED: IBUPROFEN 400 MG TAB PO PRN (20:58)
[2024-07-17] MEDS ORDERED: NALOXONE 0.4 MG/ML 1 ML VIAL IV PRN (20:58)
[2024-07-17] MEDS: SODIUM CHLORIDE 0.9% 1,000 ML IV SCH (21:14)
[2024-07-17] MEDS: IPRATROPIUM-ALBUTEROL 3 ML NEB INHALATION STA (21:54)
[2024-07-18] MEDS: THIAMINE 100 MG TAB PO SCH (13:10)
--- NOTE | 2024-07-18 15:18 | P.HPIM ---
History of Present Illness H&P Date: 07/18/24 Chief Complaint: Tremors and nausea Patient is a 58-year-old male with past medical history of COPD, hypertension, alcohol abuse who presented to the ED with tremors, nausea hallucinations. He mentions that his symptoms started yesterday evening. He started experiencing shakiness and headache as well as nausea. He denies vomiting. He also mentions that his daughter thought he was having auditory hallucinations when she found him talking to himself. He drinks 1/5 to 1 gallon a day. He mentions his last drink was yesterday at noon. He was admitted here a couple weeks ago with similar complaints. He also endorses blurry vision and chills. He has experienced dizziness and as a result he had a fall. He fell a couple days ago and at the time he did hit his head. He does not know if he lost consciousness or was just under the influence of alcohol. But he had to be carried back in the house as he was not able to get up on his own. He states that he did not get e valuated after the fall. Denies fever, shortness of breath, chest pain, palpitations, abdominal pain, dysuria, hematuria, hematochezia, melena. ED documentation reviewed. In the ED patient was treated with lorazepam, thiamine, 0.9 normal saline 75 mL/h, DuoNeb. Vitals on admission T 98.1 F, [place] 95 bpm, RR 18, BP 180/86, O2 sat 99% on room air EKG independently interpreted as sinus tachycardia, rate 101 bpm, QTc 429 ms CXR shows no acute abnormality in the chest Labs on admission show WBC 9, hemoglobin 13.6, PT 10.2, INR 0.9, sodium 133, creatinine 0.64 Troponin I <0.012 x 3 Urine toxicology positive for benzodiazepines Serum alcohol 80 Review of systems: Pertinent positives and negatives as discussed in HPI, a complete review of systems was performed and all other systems are negative. PMH:COPD,Hypertension FMH:COPD Social history: Tobacco: Current smoker, pack a day Alcohol: 1/5 to 1 gallon a day Travel: No recent travel history Sick contacts: None Physical examination: Vital signs reviewed General: nontoxic, no distress, appears at stated age Derm: warm, dry, intact Head: atraumatic, normocephalic, symmetric Eyes: EOMI, anicteric sclera Mouth: no lip lesion, mucus membranes moist Cardiovascular: S1 S2 reg, no murmur Lungs: CTA bilateral, no rhonchi, no rales, no accessory muscle use Abdominal: soft, non-tender to palpation Extremities: No cyanosis, clubbing, or pedal edema. Neuro: Alert, Oriented, Gross neurological examination did not reveal any focal deficits. Psych: well appearing, appropriate affect Assessment/Plan: Patient is a 58 year old male with PMH of COPD, hypertension, alcohol abuse who presented to the ED with tremors, nausea and auditory hallucinations. He has been admitted for alcohol withdrawal. Active: #. Alcohol withdrawal Continue lorazepam 1 mg IV Q1HR PRN for CIWA 10-15, 1 mg IV Q2HR PRN for CIWA of 8 or 9, 2 mg IV Q10M PRN for CIWA 16 or higher Continue thiamine 300 mg p.o. daily Continue folic acid 1 mg p.o. daily Assess CIWA scale every 4 hours x 72 hours Monitor vital signs Seizure precautions Consult to social work for rehab for alcoholism #. Pain or fever management Continue ibuprofen 400 mg p.o. every 6 hours as needed and acetaminophen 650 mg p.o. every 6 hours as needed #. Nausea/Vomiting Continue ondansetron 4 mg IVP Q8HR PRN Chronic: #. Hypertension Continue amlodipine 10 mg p.o. daily, clonidine 0.1 mg p.o. 3 times daily, lisinopril 10 mg p.o. daily F: 0.9 normal saline at 75 mL/h E: Replete as required N: Regular diet A: Ambulatory DVT prophylaxis: SCD GI prophylaxis: Pantoprazole 40 mg p.o. daily The patient is admitted with an anticipated less than 2 midnight stay for evaluation of tremor CODE STATUS: Full Code Discussed with: Patient Anticipated discharge place: [place] Attestation I have seen and examined this patient with my resident , discussed the same with the resident/GURINDER, and agree with the dictator's assessment and plan as written Dr. Angelito jones Past Medical History Past Medical History: COPD, Hypertension History of Any Multi-Drug Resistant Organisms: None Reported Additional Past Surgical History / Comment(s): "piece of pancreas removed" Past Psychological History: No Psychological Hx Reported Smoking Status: Current every day smoker Past Alcohol Use History: Daily, Heavy Past Drug Use History: None Reported Medications and Allergies Home Medications Medication Instructions Recorded Confirmed Type Aspirin EC [Ecotrin Low Dose] 81 mg PO DAILY 06/15/24 07/17/24 History Pantoprazole [Protonix] 40 mg PO AC-BRKFST 15 Days #15 tab 06/19/24 07/17/24 Rx cloNIDine HCL [Catapres] 0.1 mg PO TID #90 tab 06/19/24 07/17/24 Rx lisinopriL [Zestril] 10 mg PO DAILY #30 tab 06/19/24 07/17/24 Rx methocarbamoL [Robaxin-750] 750 mg PO Q6H PRN 07/01/24 07/17/24 History Folic Acid 1 mg PO DAILY #30 tab 07/03/24 07/17/24 Rx LORazepam [Ativan] 1 mg PO BID PRN #6 tab 07/03/24 07/17/24 Rx Thiamine [Vitamin B-1] 100 mg PO DAILY #30 tablet 07/03/24 07/17/24 Rx amLODIPine [Norvasc] 10 mg PO DAILY 07/17/24 07/17/24 History DULoxetine HCL [Cymbalta] 30 mg PO BID 14 Days #28 cap 07/22/24 Rx Naltrexone HCl [Revia] 50 mg PO DAILY 14 Days #14 tab 07/22/24 Rx QUEtiapine [SEROquel] 50 mg PO HS 14 Days #14 tab 07/22/24 Rx chlordiazePOXIDE HCl [Librium] See Taper PO TID 4 Days #6 cap 07/22/24 Rx Allergies Allergy/AdvReac Type Severity Reaction Status Date / Time amoxicillin Allergy Anaphylaxis Verified 07/17/24 21:18 Physical Exam Vitals: Vital Signs Temp Pulse Pulse Resp BP BP Pulse Ox 07/18/24 14:02 90 18 161/98 97 07/18/24 11:00 65 150/94 07/18/24 10:00 58 L 20 168/92 96 07/18/24 08:00 98.2 F 87 22 173/99 96 07/18/24 06:41 58 L 14 162/93 95 07/18/24 05:45 97.6 F 73 16 166/94 96 07/17/24 23:03 76 18 174/95 97 07/17/24 22:00 74 18 07/17/24 21:54 75 18 07/17/24 21:00 79 16 160/83 97 07/17/24 19:00 93 20 159/80 99 07/17/24 17:03 99.1 F 95 18 180/86 99 Intake and Output 07/17/24 07/18/24 07/18/24 22:59 06:59 14:59 Other: Weight 72.575 kg Results CBC & Chem 7: 07/22/24 03:18 07/22/24 03:18 Labs: Abnormal Lab Results - Last 24 Hours (Table) 07/17/24 07/17/24 07/17/24 Range/Units 18:22 18:22 18:22 RBC 4.03 L (4.30-5.90) m/uL MCV 100.8 H (80.0-100.0) fL Sodium 133 L (137-145) mmol/L Carbon Dioxide 19 L (22-30) mmol/L BUN 6 L (9-20) mg/dL Creatinine 0.64 L (0.66-1.25) mg/dL U Benzodiazepines Scrn Detected H (NotDetected)
[2024-07-18] MEDS: cloNIDine HCL 0.1 MG TAB PO SCH (15:30)
[2024-07-18] MEDS: amLODIPine 10 MG TAB PO SCH (15:30)
[2024-07-18] MEDS: TEMAZEPAM 7.5 MG CAP PO STA (21:52)
[2024-07-18] MEDS: NICOTINE 21MG/24HR PATCH TRANSDERM SCH (23:32)
[2024-07-19] MEDS: ONDANSETRON 4 MG/2 ML VIAL IVP PRN ×2 (02:05→09:15)
[2024-07-19 08:44] LABS: HCT 34.9 % (39.6-50.0); MCH 34.1 pg (27.0-32.0); MCHC 34.4 g/dL (32.0-37.0); MCV 99.1 FL (80.0-97.0); NRBC Per 100 WBC 0 X 10*3/uL (0.00-0.01); Platelet Count 325 X 10*3/uL (140-440); RBC 3.52 X 10*6/uL (4.40-5.60); RDW 13.1 % (11.5-14.5); WBC 7.83 X 10*3/uL (4.50-10.00)
[2024-07-19 08:50] LABS: BUN/Creat Ratio 17.83 Ratio (12.00-20.00); Blood Urea Nitrogen 10.7 mg/dL (9.0-27.0); Carbon Dioxide 23.9 mmol/L (21.6-31.8); Chloride 102 mmol/L (96-109); Glucose 122 mg/dL (70-110); Potassium 4.3 mmol/L (3.5-5.5); Sodium 136 mmol/L (135-145)
[2024-07-19] MEDS: FOLIC ACID 1 MG TAB PO SCH (09:14)
[2024-07-19] MEDS: ASPIRIN 81 MG PO SCH (09:14)
[2024-07-19] MEDS: lisinopriL 10 MG TAB PO SCH (09:15)
[2024-07-19] MEDS: PANTOPRAZOLE 40 MG TABLET PO SCH (09:17)
--- NOTE | 2024-07-19 14:26 | P.PN ---
Subjective Progress Note Date: 07/19/24 Principal diagnosis: Hospital course: Patient is a 58-year-old male with past medical history of COPD, hypertension, alcohol abuse who presented to the ED with tremors, nausea hallucinations. He mentions that his symptoms started yesterday evening. He started experiencing shakiness and headache as well as nausea. He denies vomiting. He also mentions that his daughter thought he was having auditory hallucinations when she found him talking to himself. He drinks 1/5 to 1 gallon a day. He mentions his last drink was yesterday at noon. He was admitted here a couple weeks ago with similar complaints. He also endorses blurry vision and chills. He has experienced dizziness and as a result he had a fall. He fell a couple days ago and at the time he did hit his head. He does not know if he lost consciousness or was just under the influence of alcohol. But he had to be carried back in the house as he was not able to get up on his own. He states that he did not get evaluated after the fall. Denies fever, shortness of breath, chest pain, palpi tations, abdominal pain, dysuria, hematuria, hematochezia, melena. ED documentation reviewed. In the ED patient was treated with lorazepam, thiamine, 0.9 normal saline 75 mL/h, DuoNeb. Vitals on admission T 98.1 F, [place] 95 bpm, RR 18, BP 180/86, O2 sat 99% on room air EKG independently interpreted as sinus tachycardia, rate 101 bpm, QTc 429 ms CXR shows no acute abnormality in the chest Labs on admission show WBC 9, hemoglobin 13.6, PT 10.2, INR 0.9, sodium 133, creatinine 0.64 Troponin I <0.012 x 3 Urine toxicology positive for benzodiazepines Serum alcohol 80 07/19/24: Patient seen and examined at bedside today. No acute events overnight. No new complaints today. His CIWA score at 4 AM today was 9. He has received Lorazepam every four hours and he has been started on Librium. Review of systems: Pertinent positives and negatives as discussed in HPI, a complete review of systems was performed and all other systems are negative. Vitals: Signs Reviewed Physical examination: Vital signs reviewed General: nontoxic, no distress, appears at stated age Derm: warm, dry, intact Head: atraumatic, normocephalic, symmetric Eyes: EOMI, anicteric sclera Mouth: no lip lesion, mucus membranes moist Cardiovascular: S1 S2 reg, no murmur Lungs: CTA bilateral, no rhonchi, no rales, no accessory muscle use Abdominal: soft, non-tender to palpation Extremities: No cyanosis, clubbing, or pedal edema. Neuro: Alert, Oriented, Gross neurological examination did not reveal any focal deficits. Psych: well appearing, appropriate affect Assessment/Plan: Patient is a 58 year old male with PMH of COPD, hypertension, alcohol abuse who presented to the ED with tremors, nausea and auditory hallucinations. He has been admitted for alcohol withdrawal. He has received Lorazepam every four hours yesterday and he has been started on Librium. Active: #. Alcohol withdrawal Continue lorazepam 1 mg IV Q1HR PRN for CIWA 10-15, 1 mg IV Q2HR PRN for CIWA of 8 or 9, 2 mg IV Q10M PRN for CIWA 16 or higher Continue thiamine 300 mg p.o. daily Continue folic acid 1 mg p.o. daily Started Librium 20 mg PO BID Assess CIWA scale every 4 hours x 72 hours Monitor vital signs Seizure precautions Consult to social work for rehab for alcoholism #. Pain or fever management Continue ibuprofen 400 mg p.o. every 6 hours as needed and acetaminophen 650 mg p.o. every 6 hours as needed #. Nausea/Vomiting Continue ondansetron 4 mg IVP Q8HR PRN Chronic: #. Hypertension Continue amlodipine 10 mg p.o. daily, clonidine 0.1 mg p.o. 3 times daily, lisinopril 10 mg p.o. daily F: 0.9 normal saline at 75 mL/h E: Replete as required N: Regular diet A: Ambulatory DVT prophylaxis: SCD GI prophylaxis: Pantoprazole [address] Scotty MD I have performed a history and physical examination and medical decision making of this patient, discussed the same with the the resident, and agree with the assessment and plan as written. I performed brief physical exam. Objective - Vital Signs Vital signs: Vital Signs Temp 97.7 F 07/19/24 01:11 Pulse 69 07/19/24 01:11 Resp 15 07/19/24 01:11 BP 162/85 07/19/24 01:11 Pulse Ox 100 07/19/24 01:11 FiO2 Intake & Output 07/18/24 07/19/24 07/19/24 18:59 06:59 18:59 Intake Total 2700 Balance 2700 Weight 72.575 kg Intake: Oral 2700 Other: Voiding Method Toilet # Voids 6 - Labs CBC & Chem 7: 07/20/24 05:39 07/20/24 05:39
[2024-07-19] MEDS: ACETAMINOPHEN TAB 325 MG TAB PO PRN (15:54)
[2024-07-20 08:24] LABS: HCT 37.1 % (39.6-50.0); HGB 12.7 g/dL (13.0-17.0); MCH 34.4 pg (27.0-32.0); MCHC 34.2 g/dL (32.0-37.0); MCV 100.5 FL (80.0-97.0); NRBC Per 100 WBC 0 X 10*3/uL (0.00-0.01); Platelet Count 298 X 10*3/uL (140-440); RBC 3.69 X 10*6/uL (4.40-5.60); WBC 7.46 X 10*3/uL (4.50-10.00)
[2024-07-20 08:41] LABS: BUN/Creat Ratio 20.43 Ratio (12.00-20.00); Blood Urea Nitrogen 14.3 mg/dL (9.0-27.0); Calcium 9.1 mg/dL (8.7-10.3); Carbon Dioxide 25.9 mmol/L (21.6-31.8); Chloride 104 mmol/L (96-109); Glucose 100 mg/dL (70-110); Potassium 4.4 mmol/L (3.5-5.5); Sodium 140 mmol/L (135-145)
[2024-07-20] MEDS: LORazepam 1 MG TAB PO PRN (11:07)
--- NOTE | 2024-07-20 12:32 | P.PN ---
Subjective Progress Note Date: 07/20/24 Principal diagnosis: Hospital course: Patient is a 58-year-old male with past medical history of COPD, hypertension, alcohol abuse who presented to the ED with tremors, nausea hallucinations. He mentions that his symptoms started yesterday evening. He started experiencing shakiness and headache as well as nausea. He denies vomiting. He also mentions that his daughter thought he was having auditory hallucinations when she found him talking to himself. He drinks 1/5 to 1 gallon a day. He mentions his last drink was yesterday at noon. He was admitted here a couple weeks ago with similar complaints. He also endorses blurry vision and chills. He has experienced dizziness and as a result he had a fall. He fell a couple days ago and at the time he did hit his head. He does not know if he lost consciousness or was just under the influence of alcohol. But he had to be carried back in the house as he was not able to get up on his own. He states that he did not get evaluated after the fall. Denies fever, shortness of breath, chest pain, palpi tations, abdominal pain, dysuria, hematuria, hematochezia, melena. ED documentation reviewed. In the ED patient was treated with lorazepam, thiamine, 0.9 normal saline 75 mL/h, DuoNeb. Vitals on admission T 98.1 F, [place] 95 bpm, RR 18, BP 180/86, O2 sat 99% on room air EKG independently interpreted as sinus tachycardia, rate 101 bpm, QTc 429 ms CXR shows no acute abnormality in the chest Labs on admission show WBC 9, hemoglobin 13.6, PT 10.2, INR 0.9, sodium 133, creatinine 0.64 Troponin I <0.012 x 3 Urine toxicology positive for benzodiazepines Serum alcohol 80 07/19/24: Patient seen and examined at bedside today. No acute events overnight. No new complaints today. His CIWA score at 4 AM today was 9. He has received Lorazepam every four hours and he has been started on Librium. 07/20/24: Patient evaluated today. No acute events overnight. Hemodynamically stable. CIWA today morning is 8. He received lorazepam every 3-4 hours. No acute complaints. Labs today show hemoglobin 12.7, MCV 100.5, hematocrit 37.1, sodium 140. Review of systems: Pertinent positives and negatives as discussed in HPI, a complete review of systems was performed and all other systems are negative. Vitals: Signs Reviewed Physical examination: Vital signs reviewed General: nontoxic, no distress, appears at stated age Derm: warm, dry, intact Head: atraumatic, normocephalic, symmetric Eyes: EOMI, anicteric sclera Mouth: no lip lesion, mucus membranes moist Cardiovascular: S1 S2 reg, no murmur Lungs: CTA bilateral, no rhonchi, no rales, no accessory muscle use Abdominal: soft, non-tender to palpation Extremities: No cyanosis, clubbing, or pedal edema. Neuro: Alert, Oriented, Gross neurological examination did not reveal any focal deficits. Psych: well appearing, appropriate affect Assessment/Plan: Patient is a 58 year old male with PMH of COPD, hypertension, alcohol abuse who presented to the ED with tremors, nausea and auditory hallucinations. He has been admitted for alcohol withdrawal. He has received IV Lorazepam every four hours for the past two days. Lorazepam has been changed to PO today and he continues to be on Librium. Active: #. Alcohol withdrawal Started on Lorazepam 0.5 mg PO Q4HR PRN Ciwa 4-5, 1 mg PO Q4HR PRN Ciwa 6-7, 2 mg PO Q3HR PRN Ciwa 8-9, 2 mg PO Q2HR PRN Ciwa 10 or more Continue lorazepam 1 mg IV Q1HR PRN for CIWA 10-15, 1 mg IV Q2HR PRN for CIWA of 8 or 9 Continue thiamine 300 mg p.o. daily Continue folic acid 1 mg p.o. daily Continue Librium 20 mg PO BID Assess CIWA scale every 4 hours x 72 hours Monitor vital signs Seizure precautions Consult to social work for rehab for alcoholism #. Pain or fever management Continue ibuprofen 400 mg p.o. every 6 hours as needed and acetaminophen 650 mg p.o. every 6 hours as needed #. Nausea/Vomiting Continue ondansetron 4 mg IVP Q6HR PRN #. Tobacco dependence Continue Nicotine 21 mg/24 HR patch transdermal daily Chronic: #. Hypertension Continue amlodipine 10 mg p.o. daily, clonidine 0.1 mg p.o. 3 times daily, lisinopril 10 mg p.o. daily F: 0.9 normal saline at 75 mL/h E: Replete as required N: Regular diet A: Ambulatory DVT prophylaxis: SCD GI prophylaxis: Pantoprazole 40 mg p.o. daily Objective - Vital Signs Vital signs: Vital Signs Temp 97.7 F 07/20/24 00:35 Pulse 66 07/20/24 00:35 Resp 17 07/20/24 00:35 BP 137/86 07/20/24 00:35 Pulse Ox 96 07/20/24 00:35 FiO2 Intake & Output 07/19/24 07/20/24 07/20/24 18:59 06:59 18:59 Intake Total 600 Balance 600 Intake: Intake, IV Titration 600 Amount Sodium Chloride 0.9% 1, 600 000 ml @ 75 mls/hr IV . [id number] [facility] Rx#:[id number] Other: # Voids 1 2 - Labs CBC & Chem 7: 07/20/24 05:39 07/20/24 05:39 Labs: Abnormal Lab Results - Last 24 Hours (Table) 07/19/24 07/19/24 Range/Units 05:43 05:43 RBC 3.52 L (4.40-5.60) X 10*6/uL Hgb 12.0 L (13.0-17.0) g/dL Hct 34.9 L (39.6-50.0) % MCV 99.1 H (80.0-97.0) FL MCH 34.1 H (27.0-32.0) pg Glucose 122 H (70-110) mg/dL
--- NOTE | 2024-07-20 14:03 | P.CN ---
Psychiatric Consult - . Consult date: 07/20/24 Consult:: 07/20/24 13:04 IDENTIFYING DATA: This patient is a 58-year-old male, currently , lives with his mother in a trailer, he has 3 kids, he is unemployed REASON FOR REFERRAL: Psychiatry was consulted for "alcohol abuse" HISTORY OF PRESENT ILLNESS: The patient presented to the hospital initially on 07/17 for alcohol abuse according to ER report he has a history of severe withdrawals, he was interested in rehab, apparently is a daily drinker, urine drug screen is positive for benzodiazepines. Patient was seen today at the bedside agreeable to speak to underwriter solicitation director. He was alert and oriented to his name location however believes that it was "June 22, 2024". He was attempting to answer most questions, did appear to be anxious, mildly irritable during interaction. He was also tearful at times during the interview. He states that he has been drinking heavier lately, has a history of depression anxiety, untreated. States that he has been drinking about 1/5 or more of vodka a day, last drink was before coming into the hospital. Claims that he does have a severe history of alcohol withdrawals including hallucinations shakes, currently having sweats and headaches. He states that the Ativan has not been helping enough for him. Claims that his anxiety has been getting worse and worse, claims that he is not able to go into crowds and mainly stays in the house. He claims that he has stressors including finances, poor relationship with 2 of his children. Claims that his sleep has been poor, appetite has been fair. At this time patient denies any suicidal or homical ideations, intent or plan. Patient denies any auditory, visual hallucinations and denies any paranoia or delusions. Patients admits to using alcohol daily as noted above, states that he also smokes cigarettes daily. Claims that he has been to rehab [place] twice in the past. He denies any access to guns or weapons. PAST PSYCHIATRIC HISTORY: Patient has a a history of alcohol use disorder, depression and anxiety. Claims that he has been on Zoloft in the past and is also tried trazodone and Remeron. Claims that he was last psychiatrically hospitalized at [facility] in 1995. Patient denies any psychiatric outpatient follow-up. Patient denies any history of suicide attempts in the past. Past Medical History: COPD, Hypertension History of Any Multi-Drug Resistant Organisms: None Reported Additional Past Surgical History / Comment(s): "piece of pancreas removed" Past Psychological History: No Psychological Hx Reported Smoking Status: Current every day smoker Past Alcohol Use History: Daily, Heavy Past Drug Use History: None Reported ALLERGIES: as per EMR. CHEMICAL DEPENDENCY HISTORY: as per HPI. FAMILY PSYCHIATRIC/SUBSTANCE USE HISTORY: Claims that his mother has depression SOCIAL HISTORY: Patient was born and raised in [place] and then moved to [place]. He states that he completed high school. Claims that he worked at the [employer] for about 15 years then was "bought out". States that he is currently unemployed, he is , he lives with his mother in a trailer. He has 3 kids. Claims that he has a DUI from 2010 MENTAL STATUS EXAM: General Appearance: Patient appears to be tearful at times, appears anxious stated age is alert, temps to be cooperative. Patient appears to have fair hygiene and grooming wearing hospital gown with poor eye contact. Behavior: Patient is calmly lying in bed without any agitated behavior. Tearful at times. Speech: Patient's speech is fluent and nonpressured. Mildly irritable tone Mood/Affect: Patient reports their mood is "depressed and anxious", affect is congruent Suicidality/Homicidality: Patient denies having any suicidal or homicidal ideation intent or plan. Perceptions: Patient denies any visual hallucinations and denies any auditory fierro llucinations Though content/process: There is no evidence of any delusional thought content and thought process is linear and goal-directed. Memory and concentration: AOX3, grossly intact for the purposes of this session. Can spell "WORLD" backwards Judgment and insight: Fair IMPRESSIONS: Major depressive disorder social anxiety disorder alcohol use disorder severe dependence, currently in withdrawal nicotine dependence PLAN: -At this time patient DOES NOT meet criteria for inpatient psychiatric admission. -Would recommend the following medication changes/additions: Increased scheduled dose of Librium to 25 mg 3 times daily, plan to taper off within the next 2 to 3 days for alcohol withdrawal. Patient is agreeable to start Cymbalta 20 mg twice daily for anxiety/mood, Seroquel 25 mg nightly for anxiety/insomnia/mood stabilization, naltrexone 50 mg p.o. daily for alcohol cravings. -CIWA protocol with PRN Ativan for alcohol withdrawal. Continue to monitor vital signs. -cellophane worker to provide patient with outpatient mental health/psychiatry resources for appropriate follow up upon discharge -Beater Engineer Helper spoke with patient about substance abuse and the harmful effects on medical and mental health, patient verbally understood and agreed. -cellophane worker to provide patient substance use treatment resources including AA/NA meetings in the community. -cellophane worker to provide patient with access line number to call for inpatient substance rehab -attempted to call RN by phone to give recommendations however unable to reach -Will continue to follow along -Please contact with any questions. 07/20/24 13:56
[2024-07-20] MEDS: DULoxetine HCL 20 MG CAPSULE.DR PO SCH (14:07)
[2024-07-20] MEDS: chlordiazePOXIDE 25 MG CAP PO SCH (15:52)
[2024-07-20] MEDS: LORazepam 0.5 MG TAB PO PRN (19:35)
[2024-07-20] MEDS: QUEtiapine 25 MG TAB PO SCH (22:00)
[2024-07-21] MEDS: LORazepam 1 MG TAB PO PRN ×2 (01:53→18:05)
[2024-07-21] MEDS: NALTREXONE HCL 50 MG TAB PO SCH (08:48)
[2024-07-21 10:35] LABS: HCT 36.6 % (39.6-50.0); HGB 12.5 g/dL (13.0-17.0); MCH 33.2 pg (27.0-32.0); MCHC 34.2 g/dL (32.0-37.0); MCV 97.3 FL (80.0-97.0); Mean Platelet Volume 10.5 FL (9.5-12.2); NRBC Per 100 WBC 0 X 10*3/uL (0.00-0.01); Platelet Count 308 X 10*3/uL (140-440); RBC 3.76 X 10*6/uL (4.40-5.60); RDW 13.1 % (11.5-14.5); WBC 9.27 X 10*3/uL (4.50-10.00)
--- NOTE | 2024-07-21 14:18 | P.PN ---
Progress Note - Text Progress Note Date: 07/21/24 Interval history: Patient was seen today for psychiatric follow-up. Patient continues to score mild-moderate numbers on ciwa and has been continuing to receive Ativan as needed. Currently on Librium scheduled and tapered. Patient has been taking his medications. Patient was mildly irritable today with process description writer, states that he is doing a bit better today with regards to withdrawals compared to yesterday. States that he did not sleep well last night with the Seroquel, we spoke about increasing the dose which she is okay with. He states that he is having less tremors, continues to deal with anxiety. He states that he has not called the access line yet for rehab and wanted process description writer to do it instead of him. He claims that he has been eating fairly. At this time he is denying any suicidal homicidal ideations intent or plan, denying any visual or auditory hallucinations. MENTAL STATUS EXAM: General Appearance: Patient appears to be mildly anxious stated age is alert, temps to be cooperative. Patient appears to have fair hygiene and grooming wearing hospital gown with improving eye contact. Behavior: Patient is calmly lying in bed without any agitated behavior. Not tearful today Speech: Patient's speech is fluent and nonpressured. Mildly irritable tone Mood/Affect: Patient reports their mood is "mainly anxious", affect is congruent, improving Suicidality/Homicidality: Patient denies having any suicidal or homicidal ideation intent or plan. Perceptions: Patient denies any visual hallucinations and denies any auditory hallucinations Though content/process: There is no evidence of any delusional thought content and thought process is linear and goal-directed. [place] Memory and concentration: AOX3, grossly intact for the purposes of this session. Judgment and insight: Fair IMPRESSIONS: Major depressive disorder social anxiety disorder alcohol use disorder severe dependence, currently in withdrawal nicotine dependence PLAN: -At this time patient DOES NOT meet criteria for inpatient psychiatric admission. -Would recommend the following medication changes/additions: scheduled dose of Librium to 25 mg 3 times daily, plan to taper off within the next 2 to 3 days for alcohol withdrawal. increase Cymbalta 30 mg twice daily for anxiety/mood, increase Seroquel 50 mg nightly for anxiety/insomnia/mood stabilization, naltrexone 50 mg p.o. daily for alcohol cravings. melatonin 6 mg qhs for sleep -CIWA protocol with PRN Ativan for alcohol withdrawal. Continue to monitor vital signs. -house worker general to provide patient with outpatient mental health/psychiatry resources for appropriate follow up upon discharge -Computational Scientist spoke with patient about substance abuse and the harmful effects on medical and mental health, patient verbally understood and agreed. -house worker general to provide patient substance use treatment resources including AA/NA meetings in the community. -house worker general to provide patient with access line number to call for inpatient substance rehab -at this time psychiatry will sign off. -Please contact with any questions.
--- NOTE | 2024-07-21 15:14 | P.PN ---
Subjective Progress Note Date: 07/21/24 Principal diagnosis: Hospital course: Patient is a 58-year-old male with past medical history of COPD, hypertension, alcohol abuse who presented to the ED with tremors, nausea hallucinations. He mentions that his symptoms started yesterday evening. He started experiencing shakiness and headache as well as nausea. He denies vomiting. He also mentions that his daughter thought he was having auditory hallucinations when she found him talking to himself. He drinks 1/5 to 1 gallon a day. He mentions his last drink was yesterday at noon. He was admitted here a couple weeks ago with similar complaints. He also endorses blurry vision and chills. He has experienced dizziness and as a result he had a fall. He fell a couple days ago and at the time he did hit his head. He does not know if he lost consciousness or was just under the influence of alcohol. But he had to be carried back in the house as he was not able to get up on his own. He states that he did not get evaluated after the fall. Denies fever, shortness of breath, chest pain, palpi tations, abdominal pain, dysuria, hematuria, hematochezia, melena. ED documentation reviewed. In the ED patient was treated with lorazepam, thiamine, 0.9 normal saline 75 mL/h, DuoNeb. Vitals on admission T 98.1 F, SC 95 bpm, RR 18, BP 180/86, O2 sat 99% on room air EKG independently interpreted as sinus tachycardia, rate 101 bpm, QTc 429 ms CXR shows no acute abnormality in the chest Labs on admission show WBC 9, hemoglobin 13.6, PT 10.2, INR 0.9, sodium 133, creatinine 0.64 Troponin I <0.012 x 3 Urine toxicology positive for benzodiazepines Serum alcohol 80 07/19/24: Patient seen and examined at bedside today. No acute events overnight. No new complaints today. His CIWA score at 4 AM today was 9. He has received Lorazepam every four hours and he has been started on Librium. 07/20/24: Patient evaluated today. No acute events overnight. Hemodynamically stable. CIWA today morning is 8. He received lorazepam every 3-4 hours. No acute complaints. Labs today show hemoglobin 12.7, MCV 100.5, hematocrit 37.1, sodium 140. 07/21/24: Patient examined at bedside today. No acute events overnight. CIWA today morning is 9. He complains of abdominal pain, nausea and hallucinations. Denies vomiting, diarrhea, constipation. Labs today show Hb 12.5, Hct 36.6. Review of systems: Pertinent positives and negatives as discussed in HPI, a complete review of systems was performed and all other systems are negative. Vitals: Signs Reviewed Physical examination: Vital signs reviewed General: nontoxic, no distress, appears at stated age Derm: warm, dry, intact Head: atraumatic, normocephalic, symmetric Eyes: EOMI, anicteric sclera Mouth: no lip lesion, mucus membranes moist Cardiovascular: S1 S2 reg, no murmur Lungs: CTA bilateral, no rhonchi, no rales, no accessory muscle use Abdominal: soft, non-tender to palpation Extremities: No cyanosis, clubbing, or pedal edema. Neuro: Alert, Oriented, Gross neurological examination did not reveal any focal deficits. Psych: well appearing, appropriate affect Assessment/Plan: Patient is a 58 year old male with PMH of COPD, hypertension, alcohol abuse who presented to the ED with tremors, nausea and auditory hallucinations. He has been admitted for alcohol withdrawal. He has received IV Lorazepam every four hours for the past two days. He continues to be on Lorazepam PO. Librium dose is increased and he is started on Naltrexone as well as Seroquel and Cymbalta. Active: #. Alcohol withdrawal #. Alcohol use disorder Started on Lorazepam 0.5 mg PO Q4HR PRN Ciwa 4-5, 1 mg PO Q4HR PRN Ciwa 6-7, 2 mg PO Q3HR PRN Ciwa 8-9, 2 mg PO Q2HR PRN Ciwa 10 or more Continue lorazepam 1 mg IV Q1HR PRN for CIWA 10-15, 1 mg IV Q2HR PRN for CIWA of 8 or 9 Continue thiamine 300 mg p.o. daily Continue folic acid 1 mg p.o. daily Increase Librium 25 mg PO TID and taper off in next 2-3 days Naltrexone 50 mg PO Daily added Assess CIWA scale every 4 hours x 72 hours Monitor vital signs Seizure precautions Consult to social work for rehab for alcoholism Psych is following #. Major depressive disorder #. Severe anxiety disorder Added Melatonin 6 mg PO HS, Cymbalta to 30 mg BID, Seroquel to 50 mg PO HS Psych is following #. Pain or fever management Continue ibuprofen 400 mg p.o. every 6 hours as needed and acetaminophen 650 mg p.o. every 6 hours as needed #. Nausea/Vomiting Continue ondansetron 4 mg IVP Q6HR PRN #. Tobacco dependence Continue Nicotine 21 mg/24 HR patch transdermal daily Chronic: #. Hypertension Continue amlodipine 10 mg p.o. daily, clonidine 0.1 mg p.o. 3 times daily, lisinopril 10 mg p.o. daily F: 0.9 normal saline at 75 mL/h E: Replete as required N: Regular diet A: Ambulatory DVT prophylaxis: SCD GI prophylaxis: Pantoprazole 40 mg p.o. daily Objective - Vital Signs Vital signs: Vital Signs Temp 98.1 F 07/21/24 00:56 Pulse 77 07/21/24 00:56 Resp 18 07/21/24 00:56 BP 166/88 07/21/24 00:56 Pulse Ox 96 07/21/24 00:56 FiO2 Intake & Output 07/20/24 07/21/24 07/21/24 18:59 06:59 18:59 Other: Voiding Method Toilet Toilet # Voids 2 5 - Labs CBC & Chem 7: 07/21/24 06:17 07/20/24 05:39 Labs: Abnormal Lab Results - Last 24 Hours (Table) 07/20/24 07/20/24 Range/Units 05:39 05:39 RBC 3.69 L (4.40-5.60) X 10*6/uL Hgb 12.7 L (13.0-17.0) g/dL Hct 37.1 L (39.6-50.0) % MCV 100.5 H (80.0-97.0) FL MCH 34.4 H (27.0-32.0) pg BUN/Creatinine Ratio 20.43 H (12.00-20.00) Ratio
[2024-07-21] MEDS: DULoxetine HCL 30 MG CAPSULE.DR PO SCH (20:04)
[2024-07-21] MEDS: QUEtiapine 50 MG TAB PO SCH (20:04)
[2024-07-22 03:27] VITALS: PULSE 64
[2024-07-22] MEDS: MELATONIN 3 MG TABLET PO SCH (03:33)
[2024-07-22 07:20] VITALS: BP 156/89; RESP 16
[2024-07-22 09:30] VITALS: TEMP 97.7
[2024-07-22 10:50] LABS: HCT 37.6 % (39.6-50.0); HGB 12.5 g/dL (13.0-17.0); MCH 33.3 pg (27.0-32.0); MCHC 33.2 g/dL (32.0-37.0); MCV 100.3 FL (80.0-97.0); Mean Platelet Volume 10.6 FL (9.5-12.2); NRBC Per 100 WBC 0 X 10*3/uL (0.00-0.01); Platelet Count 314 X 10*3/uL (140-440); RBC 3.75 X 10*6/uL (4.40-5.60); RDW 13.3 % (11.5-14.5); WBC 8.66 X 10*3/uL (4.50-10.00)
[2024-07-22 10:52] LABS: BUN/Creat Ratio 24.43 Ratio (12.00-20.00); Blood Urea Nitrogen 17.1 mg/dL (9.0-27.0); Calcium 9.5 mg/dL (8.7-10.3); Carbon Dioxide 26.4 mmol/L (21.6-31.8); Chloride 104 mmol/L (96-109); Glucose 102 mg/dL (70-110); Potassium 4.3 mmol/L (3.5-5.5); Sodium 141 mmol/L (135-145)
--- NOTE | 2024-07-22 11:01 | P.DS ---
Providers Date of admission: 07/17/24 21:02 Expected date of discharge: 07/22/24 Attending physician: Heide Trevino Consults: 07/20/24 12:23 Consult Physician Routine Consulting Provider: Beto Gandhi Consult Reason/Comments: alcohol addiction Do you want consulting provider notified?: Yes Primary care physician: [facility] Hospital Course: Discharge diagnosis: Alcohol withdrawal Alcohol use disorder Major depressive disorder Severe anxiety disorder Pain or fever management Nausea/Vomiting Tobacco dependence Hypertension Hospital Course: Patient is a 58-year-old male with past medical history of COPD, hypertension, alcohol abuse who presented to the ED with tremors, nausea hallucinations. He mentions that his symptoms started yesterday evening. He started experiencing shakiness and headache as well as nausea. He denies vomiting. He also mentions that his daughter thought he was having auditory hallucinations when she found him talking to himself. He drinks 1/5 to 1 gallon a day. He mentions his last drink was yesterday at noon. He was admitted here a couple weeks ago with similar complaints. He also endorses blurry vision and chills. He has experienced dizziness and as a result he had a fall. He fell a couple days ago and at the time he did hit his head. He does not know if he lost consciousness or was just under the influence of alcohol. But he had to be carried back in the house as he was not able to get up on his own. He states that he did not get evaluated after the fall. Denies fever, shortness of breath, chest pain, palpitations, abdominal pain, dysuria, hematuria, hematochezia, melena. Vitals on admission T 98.1 F, DC 95 bpm, RR 18, BP 180/86, O2 sat 99% on room air. EKG independently interpreted as sinus tachycardia, rate 101 bpm, QTc 429 ms. CXR shows no acute abnormality in the chest. Labs on admission show WBC 9, hemoglobin 13.6, PT 10.2, INR 0.9, sodium 133, creatinine 0.64. Troponin I <0.012 x 3. Urine toxicology positive for benzodiazepines. Serum alcohol 80 07/19/24: Patient seen and examined at bedside today. No acute events overnight . No new complaints today. His CIWA score at 4 AM today was 9. He has received Lorazepam every four hours and he has been started on Librium. 07/20/24: Patient evaluated today. No acute events overnight. Hemodynamically stable. CIWA today morning is 8. He received lorazepam every 3-4 hours. No acute complaints. Labs today show hemoglobin 12.7, MCV 100.5, hematocrit 37.1, sodium 140. 07/21/24: Patient examined at bedside today. No acute events overnight. CIWA today morning is 9. He complains of abdominal pain, nausea and hallucinations. Denies vomiting, diarrhea, constipation. Labs today show Hb 12.5, Hct 36.6. 07/22/24: Patient seen and evaluated at bedside today. No acute events overnight. His CIWA is 0 today morning. The last lorazepam dose he received was at 8 pm last night. Patient seen at bedside today and is feeling good and excited about discharge. Patient will be discharged today and is given a script for Librium taper, Seroquel, Duloxetine and Naltrexone. Patient is advised to be compliant with medications. Patient is advised to follow-up with PCP in 1-2 days. day care worker to provide patient substance use treatment resources including AA/NA meetings in the community and access line number to call for inpatient substance rehab Vital signs are reviewed and stable General: nontoxic, no distress, appears at stated age Derm: warm, dry, intact Head: atraumatic, normocephalic, symmetric Eyes: EOMI, anicteric sclera Mouth: no lip lesion, mucus membranes moist Cardiovascular: S1 S2 reg, no murmur Lungs: CTA bilateral, no rhonchi, no rales, no accessory muscle use Abdominal: soft, non-tender to palpation Extremities: No cyanosis, clubbing, or pedal edema. Neuro: Alert, Oriented, Gross neurological examination did not reveal any focal deficits. Psych: well appearing, appropriate affect A total of 30 minutes of time were spent preparing this complex discharge summary. Patient was discharged on 07/22/24 at 1100. Patient Condition at Discharge: Stable Plan - Discharge Summary Discharge Rx Participant: No New Discharge Prescriptions: New Naltrexone HCl [Revia] 50 mg PO DAILY 14 Days #14 tab QUEtiapine [SEROquel] 50 mg PO HS 14 Days #14 tab DULoxetine HCL [Cymbalta] 30 mg PO BID 14 Days #28 cap chlordiazePOXIDE HCl [Librium] See Taper PO TID 4 Days #6 cap Continue Aspirin EC [Ecotrin Low Dose] 81 mg PO DAILY Folic Acid 1 mg PO DAILY #30 tab cloNIDine HCL [Catapres] 0.1 mg PO TID #90 tab Pantoprazole [Protonix] 40 mg PO AC-BRKFST 15 Days #15 tab lisinopriL [Zestril] 10 mg PO DAILY #30 tab methocarbamoL [Robaxin-750] 750 mg PO Q6H PRN PRN Reason: Muscle Spasm LORazepam [Ativan] 1 mg PO BID PRN #6 tab PRN Reason: Agitation Or Acute Anxiety Thiamine [Vitamin B-1] 100 mg PO DAILY #30 tablet amLODIPine [Norvasc] 10 mg PO DAILY Discharge Medication List Aspirin EC [Ecotrin Low Dose] 81 mg PO DAILY 06/15/24 [History] Pantoprazole [Protonix] 40 mg PO AC-BRKFST 15 Days #15 tab 06/19/24 [Rx] cloNIDine HCL [Catapres] 0.1 mg PO TID #90 tab 06/19/24 [Rx] lisinopriL [Zestril] 10 mg PO DAILY #30 tab 06/19/24 [Rx] methocarbamoL [Robaxin-750] 750 mg PO Q6H PRN 07/01/24 [History] Folic Acid 1 mg PO DAILY #30 tab 07/03/24 [Rx] LORazepam [Ativan] 1 mg PO BID PRN #6 tab 07/03/24 [Rx] Thiamine [Vitamin B-1] 100 mg PO DAILY #30 tablet 07/03/24 [Rx] amLODIPine [Norvasc] 10 mg PO DAILY 07/17/24 [History] DULoxetine HCL [Cymbalta] 30 mg PO BID 14 Days #28 cap 07/22/24 [Rx] Naltrexone HCl [Revia] 50 mg PO DAILY 14 Days #14 tab 07/22/24 [Rx] QUEtiapine [SEROquel] 50 mg PO HS 14 Days #14 tab 07/22/24 [Rx] chlordiazePOXIDE HCl [Librium] See Taper PO TID 4 Days #6 cap 07/22/24 [Rx] Follow up Appointment(s)/Referral(s): Mahesh Ramos DO [Primary Care Provider] - 1-2 days Discharge/Stand Alone Forms: AA Meetings [facility], Outpatient Counseling, In Substance Abuse Facilities Discharge Disposition: HOME SELF-CARE
--- NOTE | 2024-07-25 15:05 | CDI ---
Documentation Clarification Form Date: 07/25/2024 02:36:11 PM From: Almaz Mnceal RN, CCDS Email: [email or web address] Admit Date: 07/17/2024 09:02:00 PM Patient Name: Beto Arellano Visit Number: [id number] Discharge Date: 07/22/2024 01:44:00 PM ATTENTION: The Clinical Documentation Specialists (CDI) and [facility] Coding Staff appreciate your assistance in clarifying documentation. Please respond to the clarification below the line at the bottom and electronically sign. The CDI & [facility] Coding staff will review the response and follow-up if needed. Please note: Queries are made part of the Legal Health Record. If you have any questions, please contact the author of this message via ITS. Doctor Yoni Fajardo The patient had delirium and was hallucinating due to alcohol withdrawal. Based on this information and the findings below, clarification is requested. Patient history/risk factors: COPD, HTN and alcohol abuse. Presents with tremors, nausea and hallucinations. Admitted for alcohol withdrawal. Clinical Indicators: ED: "Tachycardia believed to be due to alcohol withdrawal." H&P: "Alcohol withdrawal." 07/20 Nursing note: "moderate anxiety, moderate severe hallucinations, moderate headache." 07/17 Toxicology: + Benzodiazepines 07/17 Na: 133 Treatment: IV Ativan 1mg Q2H given on 07/17-07/22; Ativan 0.5mg po x1 on 07/20; Ativan 1mg po x1 on 07/21 and 07/22; Ativan 2mg po x3 on 07/20; IM Vitamin B1 x1 on 07/17; Librium 20mg po BID 07/19-07/20; Librium 25mg po TID 07/20-07/22; 1L 0.9 NS IV bolus x1 on 07/17 Please clarify the diagnosis for this patient? [ x] Delirium and hallucinations with toxic encephalopathy [ ] Delirium and hallucinations without toxic encephalopathy [ ] Unable to determine [ ] Other, please specify MTDD
== END 2024-07-22 13:44 | disposition home or self-care (01) | DRG 775 ==
LOC: EC 17:02 → 5NMEDONC 21:01 → OBSVTOIN 21:02 → 6NMEDSUR 21:07 → 4SSUR 07-18 04:17
PROVIDERS: ADMIT Hospitalist; ATTEND Hospitalist
DX: F10.229 Alcohol dependence with intoxication, unspecified (principal); F10.239 Alcohol dependence with withdrawal, unspecified; G92.8 Other toxic encephalopathy; J44.9 Chronic obstructive pulmonary disease, unspecified; F32.9 Major depressive disorder, single episode, unspecified; I10 Essential (primary) hypertension; F17.210 Nicotine dependence, cigarettes, uncomplicated; F40.10 Social phobia, unspecified; R11.2 Nausea with vomiting, unspecified; Z56.0 Unemployment, unspecified; Z79.82 Long term (current) use of aspirin; Z79.899 Other long term (current) drug therapy; Z28.310 Unvaccinated for COVID-19; Z28.21 Immunization not carried out because of patient refusal; Z91.81 History of falling; Z63.5 Disruption of family by separation and divorce; Z90.411 Acquired partial absence of pancreas; Z88.0 Allergy status to penicillin
CPT/HCPCS: 36415; 71046; 80048; 80053; 80306; 80320; 82150; 83690; 83735; 84484; 85025; 85027; 85610; 85730; 93005; 94640; 96361; 96372; 96374; 96376; 99285

== ENCOUNTER 2024-08-22 23:59 | Observation (INO) | payer OTHER ==
[2024-08-23] MEDS ORDERED: LORazepam 2 MG/ML INJ IV PRN
--- NOTE | 2024-08-23 00:04 | ED ---
Alcohol HPI - General Stated Complaint: ETOH Time Seen by Provider: 08/23/24 00:00 Source: RN notes reviewed, old records reviewed Mode of arrival: EMS Limitations: no limitations - History of Present Illness Initial Comments: This is a 59-year-old male to the ER for evaluation of significant and severe alcohol intoxication multiple ER visits for alcohol intoxication for strain secondary to intoxicated state presents by EMS MD Complaint: alcohol intoxication Last Drink: just [employer] -: minute(s) Previous Visits for Alcohol Intoxication?: Yes Recent Trauma: Yes Associated Symptoms: denies other symptoms Treatments Prior to Arrival: none Chronic Alcohol Use: Yes - Related Data Home Medications Medication Instructions Recorded Confirmed Aspirin EC [Ecotrin Low Dose] 81 mg PO DAILY 06/15/24 08/23/24 methocarbamoL [Robaxin-750] 750 mg PO Q6H PRN 07/01/24 08/23/24 Previous Rx's Medication Instructions Recorded LORazepam [Ativan] 1 mg PO BID PRN #6 tab 07/03/24 Naltrexone HCl [Revia] 50 mg PO DAILY 14 Days #14 tab 07/22/24 DULoxetine HCL [Cymbalta] 30 mg PO BID 14 Days #28 cap 08/26/24 Folic Acid 1 mg PO DAILY #30 tab 08/26/24 Pantoprazole [Protonix] 40 mg PO AC-BRKFST 30 Days #30 tab 08/26/24 QUEtiapine [SEROquel] 50 mg PO HS 14 Days #14 tab 08/26/24 Thiamine [Vitamin B-1] 100 mg PO DAILY #30 tablet 08/26/24 amLODIPine [Norvasc] 10 mg PO DAILY 30 Days #30 tab 08/26/24 cloNIDine HCL [Catapres] 0.1 mg PO TID #90 tab 08/26/24 lisinopriL [Zestril] 10 mg PO DAILY #30 tab 08/26/24 Allergies Allergy/AdvReac Type Severity Reaction Status Date / Time amoxicillin Allergy Anaphylaxis Verified 08/23/24 10:33 Review of Systems ROS Statement: Those systems with pertinent positive or pertinent negative responses have been documented in the HPI. ROS Other: All systems not noted in ROS Statement are negative. Past Medical History Past Medical History: COPD, Hypertension History of Any Multi-Drug Resistant Organisms: None Reported Additional Past Surgical History / Comment(s): "piece of pancreas removed" Past Anesthesia/Blood Transfusion Reactions: No Reported Reaction Past Psychological History: No Psychological Hx Reported Smoking Status: Current every day smoker Past Alcohol Use History: Daily, Heavy Past Drug Use History: None Reported General Exam Limitations: altered mental status General appearance: alert, appears intoxicated Head exam: Present: atraumatic, normocephalic, normal inspection Eye exam: Present: normal appearance, PERRL, EOMI. Absent: scleral icterus, conjunctival injection, periorbital swelling ENT exam: Present: normal exam, mucous membranes moist Neck exam: Present: normal inspection. Absent: tenderness, meningismus, lymphadenopathy Respiratory exam: Present: normal lung sounds bilaterally. Absent: respiratory distress, wheezes, rales, rhonchi, stridor Cardiovascular Exam: Present: regular rate, normal rhythm, normal heart sounds. Absent: systolic murmur, diastolic murmur, rubs, gallop, clicks GI/Abdominal exam: Present: soft, normal bowel sounds. Absent: distended, tenderness, guarding, rebound, rigid Extremities exam: Present: normal inspection, full ROM, normal capillary refill. Absent: tenderness, pedal edema, joint swelling, calf tenderness Back exam: Present: normal inspection Neurological exam: Present: alert, oriented X3, CN II-XII intact Psychiatric exam: Present: normal affect, normal mood Skin exam: Present: warm, dry, intact, normal color. Absent: rash Course Vital Signs 08/23/24 08/23/24 08/23/24 00:06 01:08 02:40 Temperature 98.7 F Pulse Rate 94 95 95 Respiratory 17 17 15 Rate Blood Pressure 172/110 166/95 148/83 O2 Sat by Pulse 99 95 95 Oximetry 08/23/24 08/23/24 08/23/24 04:31 07:39 07:44 Temperature Pulse Rate 73 68 101 H Respiratory 15 18 18 Rate Blood Pressure 175/91 138/78 O2 Sat by Pulse 95 95 98 Oximetry 08/23/24 08/23/24 08/23/24 11:00 12:00 15:30 Temperature Pulse Rate 101 H 100 93 Respiratory 18 18 18 Rate Blood Pressure 189/114 160/100 161/73 O2 Sat by Pulse 96 96 95 Oximetry 08/23/24 08/23/24 08/23/24 16:30 17:30 18:00 Temperature Pulse Rate 92 102 H Respiratory 18 18 Rate Blood Pressure 178/101 186/101 171/92 O2 Sat by Pulse 96 Oximetry 08/23/24 08/23/24 08/23/24 18:30 19:00 19:41 Temperature Pulse Rate 99 89 Respiratory 18 18 Rate Blood Pressure 173/92 148/90 152/96 O2 Sat by Pulse 95 96 Oximetry - Reevaluation(s) Reevaluation #1: 08/23/24 00:23 Medical records reviewed Reevaluation #2: 08/23/24 00:23 Symptoms unchanged Reevaluation #3: 08/23/24 00:23 Patient informed of results and questions answered Reevaluation #4: Was pt. sent in by a medical professional or institution (, [facility], EXCELLENCE CONSULTANT, urgent care, hospital, or half-way...) When possible be specific @ -no Did you speak to anyone other than the patient for history (EMS, parent, family, police, friend...)? What history was obtained from this source @ -no Did you review nursing and triage notes (agree or disagree)? Why? @ -agree Are old charts reviewed (outside hosp., previous admission, EMS record, old EKG, old radiological studies, urgent care reports/EKG's, half-way records)? Report findings @ -yes Differential Diagnosis (chest pain, altered mental status, abdominal pain women, abdominal pain men, vaginal bleeding, weakness, fever, dyspnea, syncope, headache, dizziness, GI bleed, back pain, seizure, CVA, palpatations, mental health, musculoskeletal)? @ -prior EKG interpreted by me (3pts min.). @ -no X-rays interpreted by me (1pt min.). @ -no CT interpreted by me (1pt min.). @ -no U/S interpreted by me (1pt. min.). @ -no What testing was considered but not performed or refused? (CT, X-rays, U/S, labs)? Why? @ -none What meds were considered but not given or refused? Why? @ -none Did you discuss the management of the patient with other professionals (professionals i.e. [facility], EXCELLENCE CONSULTANT, lab, RT, psych nurse, socially responsible investment adviser, industrial millwright, teacher, ordnance officer, pillowcase turner)? Give summary @ -no Was smoking cessation discussed for >3mins.? @ -no Was critical care preformed (if so, how long)? @ -no Were there social determinants of health that impacted care today? How? (Ho melessness, low income, unemployed, alcoholism, drug addiction, transportation, low edu. Level, literacy, decrease access to med. care, [place] [facility], rehab)? @ -none Was there de-escalation of care discussed even if they declined (Discuss DNR or withdrawal of care, Hospice)? DNR status @ -no What co-morbidities impacted this encounter? (DM, HTN, Smoking, COPD, CAD, Cancer, CVA, ARF, Chemo, Hep., AIDS, mental health diagnosis, sleep apnea, morbid obesity)? @ -none Was patient admitted / discharged? Hospital course, mention meds given and route, prescriptions, significant lab abnormalities, going to OR and other pertinent info. @ - 59 male to be admitted for severe alcohol intoxication pending withdrawal Admitted Undiagnosed new problem with uncertain prognosis? @ -no Drug Therapy requiring intensive monitoring for toxicity (Heparin, Nitro, Insulin, Cardizem)? @ -no Were any procedures done? @ -no Diagnosis/symptom? @ -Alcohol intoxication pending withdrawal Acute, or Chronic, or Acute on Chronic? @ -Acute Uncomplicated (without systemic symptoms) or Complicated (systemic symptoms)? @ -Complicated Side effects of treatment? @ -no Exacerbation, Progression, or Severe Exacerbation? @ -exacerbation Poses a threat to life or bodily function? How? (Chest pain, USA, NH, pneumonia, PE, COPD, DKA, ARF, appy, cholecystitis, CVA, Diverticulitis, Homicidal, Suicidal, threat to staff... and all critical care pts) @ -yes - Consultations Consultation #1: Spoke with [facility] who agrees to admit this patient Medical Decision Making - Medical Decision Making 59 male to be admitted for severe alcohol intoxication pending withdrawal - Lab Data Result diagrams: 08/24/24 03:26 08/24/24 03:26 Disposition Clinical Impression: Alcohol withdrawal syndrome, Alcohol abuse, Alcoholic intoxication Disposition: ADMITTED IP TO THIS HOSP Condition: Fair Is patient prescribed a controlled substance at d/c from ED?: No Time of Disposition: 00:50
[2024-08-23] MEDS ORDERED: NALOXONE 0.4 MG/ML 1 ML VIAL IV PRN (00:21)
[2024-08-23] MEDS: SODIUM CHLORIDE 0.9% 1,000 ML IV STA ×2 (00:53)
[2024-08-23] MEDS: LORazepam 2 MG/ML INJ IV PRN ×2 (00:55→01:29)
[2024-08-23 01:16] LABS: ALT 16 U/L (4-49); AST 23 U/L (17-59); African American GFR (CKD) >90 (>60 ml/min/1.73 sqM); Albumin 4.7 g/dL (3.5-5.0); Alkaline Phosphatase 103 U/L (38-126); Anion Gap 11 mmol/L; Blood Urea Nitrogen 16 mg/dL (9-20); Calcium 9.2 mg/dL (8.4-10.2); Carbon Dioxide 24 mmol/L (22-30); Chloride 109 mmol/L (98-107); Glucose 105 mg/dL (74-99); Lipase 46 U/L (23-300); Non-African American GFR(CKD) >90 (>60 ml/min/1.73 sqM); Phosphorus 3.1 mg/dL (2.5-4.5); Potassium 4.2 mmol/L (3.5-5.1); Sodium 144 mmol/L (137-145); Total Bilirubin 0.3 mg/dL (0.2-1.3); Total Protein 7.3 g/dL (6.3-8.2)
[2024-08-23 01:27] LABS: Basophils # (A) 0.1 k/uL (0-0.2); Basophils % (A) 1 %; Eosinophils # (A) 0.2 k/uL (0-0.7); Eosinophils % (A) 3 %; HGB 15.7 gm/dL (13.0-17.5); Lymphocytes # (A) 3.7 k/uL (1.0-4.8); Lymphocytes % (A) 55 %; MCH 34.1 pg (25.0-35.0); MCHC 34.9 g/dL (31.0-37.0); MCV 97.7 fL (80.0-100.0); Mean Platelet Volume 8.1; Monocytes # (A) 0.5 k/uL (0-1.0); Monocytes % (A) 7 %; Neutrophils % (A) 31 %; Platelet Count 314 k/uL (150-450); RDW 13.4 % (11.5-15.5); WBC 6.7 k/uL (3.8-10.6)
[2024-08-23 01:33] LABS: Alcohol 344 mg/dL
[2024-08-23] MEDS: SODIUM CHLORIDE 0.9% 1,000 ML IV SCH (02:40)
[2024-08-23] MEDS: FOLIC ACID 1 MG TAB PO SCH (08:42)
[2024-08-23] MEDS: MULTIVITAMINS, THERA 1 EACH TAB PO SCH (08:42)
[2024-08-23] MEDS: PANTOPRAZOLE 40 MG/10 ML VIAL IV SCH (08:51)
[2024-08-23] MEDS: NICOTINE 21MG/24HR PATCH TRANSDERM SCH (11:37)
[2024-08-23] MEDS: ONDANSETRON 4 MG/2 ML VIAL IVP PRN (12:01)
[2024-08-23] MEDS: lisinopriL 10 MG TAB PO SCH (13:40)
[2024-08-23] MEDS: amLODIPine 10 MG TAB PO SCH (13:40)
[2024-08-23] MEDS: ASPIRIN 81 MG PO SCH (13:40)
--- NOTE | 2024-08-23 15:19 | P.HPIM ---
History of Present Illness H&P Date: 08/23/24 History of present illness; patient is 59-year-old gentleman with past medical history significant for hypertension, alcohol abuse presented to the ER for alcohol intoxication. Patient had fou any auditory hallucinations and denies any suicidal thoughts. Patient denies any homicidal thoughts. Patient denies any suicidal thoughts. Patient denies any auditory or visual sensations hallucinations. Patient denies any chest pain. Patient denies any shortness of breath. There is no complaint orthopnea or PND. Because of alcohol intoxication, patient presented to the ER Initial lab work done in the ER showed WBC 6.7, hemoglobin 13.7, platelet count 314, sodium 144, potassium 4.2, BUN 16, creatinine 0.8, glucose 105, serum alcohol 344 Patient admitted to internal medicine service REVIEW OF SYSTEMS: CONSTITUTIONAL: No fever, no malaise, no fatigue. HEENT: No recent visual problems or hearing problems. Denied any sore throat. CARDIOVASCULAR: No chest pain, orthopnea, PND, no palpitations, no syncope. PULMONARY: No shortness of breath, no cough, no hemoptysis. GASTROINTESTINAL: No diarrhea, no nausea, no vomiting, no abdominal pain. NEUROLOGICAL: No headaches, no weakness, no numbness. HEMATOLOGICAL: Denies any bleeding or petechiae. GENITOURINARY: Denies any burning micturition, frequency, or urgency. MUSCULOSKELETAL/RHEUMATOLOGICAL: Denies any joint pain, swelling, or any muscle pain. ENDOCRINE: Denies any polyuria or polydipsia. The rest of the 14-point review of systems is negative. PHYSICAL EXAMINATION: GENERAL: The patient is alert and oriented x3, not in any acute distress. Well developed, well nourished. HEENT: Pupils are round and equally reacting to light. EOMI. No scleral icterus. No conjunctival pallor. Normocephalic, atraumatic. No pharyngeal erythema. No thyromegaly. CARDIOVASCULAR: S1 and S2 present. No murmurs, rubs, or gallops. PULMONARY: Chest is clear to auscultation, no wheezing or crackles. ABDOMEN: Soft, nontender, nondistended, normoactive bowel sounds. No palpable organomegaly. MUSCULOSKELETAL: No joint swelling or deformity. EXTREMITIES: No cyanosis, clubbing, or pedal edema. NEUROLOGICAL: Gross neurological examination did not reveal any focal deficits. SKIN: No rashes. Assessment and plan Alcohol intoxication Impending alcohol detox Major depressive disorder social anxiety disorder Hypertension Monitor vital signs Monitor CBC Monitor CMP Delirium precautions Fall precautions Ordered high-dose thiamine and folic acid Ordered [facility] protocol Resume home meds Labs and medication were reviewed.. Continue same treatment. Continue with symptomatic treatment. Resume home medication. Monitor labs and vitals. DVT and GI prophylaxis. Further recommendations as per clinical course of the patient Dictation was produced using [employer] dictation software. please excuse any grammatical, word or spelling errors. Past Medical History Past Medical History: COPD, Hypertension History of Any Multi-Drug Resistant Organisms: None Reported Additional Past Surgical History / Comment(s): "piece of pancreas removed" Past Anesthesia/Blood Transfusion Reactions: No Reported Reaction Past Psychological History: No Psychological Hx Reported Smoking Status: Current every day smoker Past Alcohol Use History: Daily, Heavy Past Drug Use History: None Reported Medications and Allergies Home Medications Medication Instructions Recorded Confirmed Type Aspirin EC [Ecotrin Low Dose] 81 mg PO DAILY 06/15/24 08/23/24 History Pantoprazole [Protonix] 40 mg PO AC-BRKFST 15 Days #15 tab 06/19/24 08/23/24 Rx cloNIDine HCL [Catapres] 0.1 mg PO TID #90 tab 06/19/24 08/23/24 Rx lisinopriL [Zestril] 10 mg PO DAILY #30 tab 06/19/24 08/23/24 Rx methocarbamoL [Robaxin-750] 750 mg PO Q6H PRN 07/01/24 08/23/24 History Folic Acid 1 mg PO DAILY #30 tab 07/03/24 08/23/24 Rx LORazepam [Ativan] 1 mg PO BID PRN #6 tab 07/03/24 08/23/24 Rx Thiamine [Vitamin B-1] 100 mg PO DAILY #30 tablet 07/03/24 08/23/24 Rx amLODIPine [Norvasc] 10 mg PO DAILY 07/17/24 08/23/24 History DULoxetine HCL [Cymbalta] 30 mg PO BID 14 Days #28 cap 07/22/24 08/23/24 Rx Naltrexone HCl [Revia] 50 mg PO DAILY 14 Days #14 tab 07/22/24 08/23/24 Rx QUEtiapine [SEROquel] 50 mg PO HS 14 Days #14 tab 07/22/24 08/23/24 Rx Allergies Allergy/AdvReac Type Severity Reaction Status Date / Time amoxicillin Allergy Anaphylaxis Verified 08/23/24 10:33 Physical Exam Vitals: Vital Signs Temp Pulse Resp BP Pulse Ox 08/23/24 12:00 100 18 160/100 96 08/23/24 11:00 101 H 18 189/114 96 08/23/24 07:44 101 H 18 98 08/23/24 07:39 68 18 138/78 95 08/23/24 04:31 73 15 175/91 95 08/23/24 02:40 95 15 148/83 95 08/23/24 01:08 95 17 166/95 95 08/23/24 00:06 98.7 F 94 17 172/110 99 Intake and Output 08/22/24 08/23/24 08/23/24 22:59 06:59 14:59 Other: Weight 72.575 kg Results CBC & Chem 7: 08/23/24 00:51 08/23/24 00:51 Labs: Abnormal Lab Results - Last 24 Hours (Table) 08/23/24 Range/Units 00:51 Chloride 109 H (98-107) mmol/L Glucose 105 H (74-99) mg/dL Serum Alcohol 344 H* mg/dL
[2024-08-23] MEDS: cloNIDine HCL 0.1 MG TAB PO SCH (16:08)
[2024-08-23] MEDS: hydrALAZINE HCL 20 MG/ML 1 ML VIAL IVP PRN (17:59)
[2024-08-23] MEDS: QUEtiapine 50 MG TAB PO SCH (22:33)
[2024-08-23] MEDS: DULoxetine HCL 30 MG CAPSULE.DR PO SCH (22:33)
[2024-08-24] MEDS ORDERED: PANTOPRAZOLE 40 MG TABLET PO SCH (07:30)
[2024-08-24 09:31] LABS: Basophils # (A) 0.06 X 10*3/uL (0.00-0.10); Basophils % (A) 0.9 %; Eosinophils # (A) 0.27 X 10*3/uL (0.04-0.35); Eosinophils % (A) 4.1 %; HCT 36.5 % (39.6-50.0); HGB 12.4 g/dL (13.0-17.0); Lymphocytes # (A) 2.33 X 10*3/uL (0.90-5.00); MCH 33.1 pg (27.0-32.0); MCV 97.3 FL (80.0-97.0); Mean Platelet Volume 10.8 FL (9.5-12.2); Monocytes # (A) 0.61 X 10*3/uL (0.20-1.00); Monocytes % (A) 9.2 %; NRBC Per 100 WBC 0 X 10*3/uL (0.00-0.01); Neutrophils # (A) 3.37 X 10*3/uL (1.80-7.70); Neutrophils % (A) 50.6 %; Platelet Count 279 X 10*3/uL (140-440); RBC 3.75 X 10*6/uL (4.40-5.60); WBC 6.65 X 10*3/uL (4.50-10.00)
[2024-08-24 10:28] LABS: ALT 15 U/L (10-49); AST 26 U/L (14-35); Albumin 3.7 g/dL (3.8-4.9); Albumin/Globulin Ratio 1.95 Ratio (1.60-3.17); Alkaline Phosphatase 93 U/L (41-126); BUN/Creat Ratio 15.62 Ratio (12.00-20.00); Blood Urea Nitrogen 12.5 mg/dL (9.0-27.0); Calcium 8.7 mg/dL (8.7-10.3); Carbon Dioxide 25.5 mmol/L (21.6-31.8); Chloride 107 mmol/L (96-109); Globulin 1.9 g/dL (1.6-3.3); Glucose 120 mg/dL (70-110); Potassium 3.9 mmol/L (3.5-5.5); Sodium 142 mmol/L (135-145); Total Bilirubin 0.6 mg/dL (0.3-1.2); Total Protein 5.6 g/dL (6.2-8.2)
[2024-08-24] MEDS: LORazepam 0.5 MG TAB PO PRN (12:05)
--- NOTE | 2024-08-24 14:14 | P.PN ---
Subjective Progress Note Date: 08/24/24 patient is 59-year-old gentleman with past medical history significant for hypertension, alcohol abuse presented to the ER for alcohol intoxication. Patient had fou any auditory hallucinations and denies any suicidal thoughts. Patient denies any homicidal thoughts. Patient denies any suicidal thoughts. Patient denies any auditory or visual sensations hallucinations. Patient denies any chest pain. Patient denies any shortness of breath. There is no complaint orthopnea or PND. Because of alcohol intoxication, patient presented to the ER Initial lab work done in the ER showed WBC 6.7, hemoglobin 13.7, platelet count 314, sodium 144, potassium 4.2, BUN 16, creatinine 0.8, glucose 105, serum alc ohol 344 Patient admitted to internal medicine service 08/24. Patient seen and examined. Patient is still anxious but states she is doing much better compared to yesterday. Patient was to go to [place] REVIEW OF SYSTEMS: CONSTITUTIONAL: No fever, no malaise,. CARDIOVASCULAR: No chest pain, no palpitations, no syncope. PULMONARY: No shortness of breath, no cough, GASTROINTESTINAL: No diarrhea, no nausea, no vomiting, no abdominal pain. NEUROLOGICAL: No headaches, no weakness, PHYSICAL EXAMINATION: GENERAL: The patient is alert and oriented x3, not in any acute distress. Well developed, well nourished. HEENT: Pupils are round and equally reacting to light. EOMI. No scleral icterus. No conjunctival pallor. Normocephalic, atraumatic. No pharyngeal erythema. No thyromegaly. CARDIOVASCULAR: S1 and S2 present. No murmurs, rubs, or gallops. PULMONARY: Chest is clear to auscultation, no wheezing or crackles. ABDOMEN: Soft, nontender, nondistended, normoactive bowel sounds. No palpable organomegaly. MUSCULOSKELETAL: No joint swelling or deformity. EXTREMITIES: No cyanosis, clubbing, or pedal edema. NEUROLOGICAL: Gross neurological examination did not reveal any focal deficits. SKIN: No rashes. Assessment and plan Alcohol intoxication Impending alcohol detox Major depressive disorder social anxiety disorder Hypertension Monitor vital signs Monitor CBC Monitor CMP Delirium precautions Fall precautions Continue high-dose thiamine and folic acid Continue CIWA protocol Continue Norvasc, lisinopril Labs and medication were reviewed.. Continue same treatment. Continue with symptomatic treatment. Resume home medication. Monitor labs and vitals. DVT and GI prophylaxis. Further recommendations as per clinical course of the patient Dictation was produced using [employer] dictation software. please excuse any grammatical, word or spelling errors. Objective - Vital Signs Vital signs: Vital Signs Temp 97.9 F 08/24/24 08:00 Pulse 106 H 08/24/24 11:00 Resp 18 08/24/24 08:00 BP 170/95 08/24/24 11:00 Pulse Ox 96 08/24/24 08:00 FiO2 Intake & Output 08/23/24 08/24/24 08/24/24 18:59 06:59 18:59 Weight 72.575 kg Other: Voiding Method Toilet # Voids 2 - Labs CBC & Chem 7: 08/24/24 03:26 08/24/24 03:26 Labs: Abnormal Lab Results - Last 24 Hours (Table) 08/24/24 08/24/24 Range/Units 03:26 03:26 RBC 3.75 L (4.40-5.60) X 10*6/uL Hgb 12.4 L (13.0-17.0) g/dL Hct 36.5 L (39.6-50.0) % MCV 97.3 H (80.0-97.0) FL MCH 33.1 H (27.0-32.0) pg Glucose 120 H (70-110) mg/dL Total Protein 5.6 L (6.2-8.2) g/dL Albumin 3.7 L (3.8-4.9) g/dL
--- NOTE | 2024-08-25 14:09 | P.PN ---
Subjective Progress Note Date: 08/25/24 patient is 59-year-old gentleman with past medical history significant for hypertension, alcohol abuse presented to the ER for alcohol intoxication. Patient had fou any auditory hallucinations and denies any suicidal thoughts. Patient denies any homicidal thoughts. Patient denies any suicidal thoughts. Patient denies any auditory or visual sensations hallucinations. Patient denies any chest pain. Patient denies any shortness of breath. There is no complaint orthopnea or PND. Because of alcohol intoxication, patient presented to the ER Initial lab work done in the ER showed WBC 6.7, hemoglobin 13.7, platelet count 314, sodium 144, potassium 4.2, BUN 16, creatinine 0.8, glucose 105, serum alc ohol 344 Patient admitted to internal medicine service 08/24. Patient seen and examined. Patient is still anxious but states she is doing much better compared to yesterday. Patient was to go to [place] 08/25. Patient seen examined. Patient is doing much better, still gets anxious REVIEW OF SYSTEMS: CONSTITUTIONAL: No fever, no malaise,. CARDIOVASCULAR: No chest pain, no palpitations, no syncope. PULMONARY: No shortness of breath, no cough, GASTROINTESTINAL: No diarrhea, no nausea, no vomiting, no abdominal pain. NEUROLOGICAL: No headaches, no weakness, PHYSICAL EXAMINATION: GENERAL: The patient is alert and oriented x3, not in any acute distress. Well developed, well nourished. HEENT: Pupils are round and equally reacting to light. EOMI. No scleral icterus. No conjunctival pallor. Normocephalic, atraumatic. No pharyngeal erythema. No thyromegaly. CARDIOVASCULAR: S1 and S2 present. No murmurs, rubs, or gallops. PULMONARY: Chest is clear to auscultation, no wheezing or crackles. ABDOMEN: Soft, nontender, nondistended, normoactive bowel sounds. No palpable organomegaly. MUSCULOSKELETAL: No joint swelling or deformity. EXTREMITIES: No cyanosis, clubbing, or pedal edema. NEUROLOGICAL: Gross neurological examination did not reveal any focal deficits. SKIN: No rashes. Assessment and plan Alcohol intoxication Impending alcohol detox Major depressive disorder social anxiety disorder Hypertension Monitor vital signs Monitor CBC Monitor CMP Delirium precautions Fall precautions Continue high-dose thiamine and folic acid Continue CIWA protocol Continue Norvasc, lisinopril Labs and medication were reviewed.. Continue same treatment. Continue with symptomatic treatment. Resume home medication. Monitor labs and vitals. DVT and GI prophylaxis. Further recommendations as per clinical course of the patient Dictation was produced using [employer] dictation software. please excuse any grammatical, word or spelling errors. Objective - Vital Signs Vital signs: Vital Signs Temp 98.1 F 08/25/24 07:38 Pulse 82 08/25/24 07:38 Resp 20 08/25/24 07:38 BP 151/84 08/25/24 07:38 Pulse Ox 97 08/25/24 07:38 FiO2 Intake & Output 08/24/24 08/25/24 08/25/24 18:59 06:59 18:59 Other: Voiding Method Toilet Toilet # Voids 2 4 - Labs CBC & Chem 7: 08/24/24 03:26 08/24/24 03:26
[2024-08-25] MEDS: LORazepam 1 MG TAB PO PRN (20:06)
[2024-08-26 08:49] VITALS: BP 121/77; PULSE 70; RESP 16; TEMP 97.5
[2024-08-26] MEDS: LORazepam 1 MG TAB PO PRN ×2 (09:40→12:16)
--- NOTE | 2024-08-26 14:17 | P.DS ---
Providers Date of admission: 08/23/24 00:21 Expected date of discharge: 08/26/24 Attending physician: Heide Trevino Primary care physician: [facility] Course: Discharge diagnoses; Alcohol intoxication Impending alcohol detox Major depressive disorder social anxiety disorder Hypertension Hospital course; patient is 59-year-old gentleman with past medical history significant for hypertension, alcohol abuse presented to the ER for alcohol intoxication. Patient had fou any auditory hallucinations and denies any suicidal thoughts. Patient denies any homicidal thoughts. Patient denies any suicidal thoughts. Patient denies any auditory or visual sensations hallucinations. Patient denies any chest pain. Patient denies any shortness of breath. There is no complaint orthopnea or PND. Because of alcohol intoxication, patient presented to the ER Initial lab work done in the ER showed WBC 6.7, hemoglobin 13.7, platelet count 314, sodium 144, potassium 4.2, BUN 16, creatinine 0.8, glucose 105, serum alcohol 344 Patient admitted to internal medicine service 08/24. Patient seen and examined. Patient is still anxious but states she is doing much better compared to yesterday. Patient was to go to [place] 08/25. Patient seen examined. Patient is doing much better, still gets anxious 08/26. Patient seen and examined. Doing much better, wants to follow-up outpatient for alcohol rehab. Being discharged stable condition PHYSICAL EXAMINATION: GENERAL: The patient is alert and oriented x3, not in any acute distress. Well developed, well nourished. HEENT: Pupils are round and equally reacting to light. EOMI. No scleral icterus. No conjunctival pallor. Normocephalic, atraumatic. No pharyngeal erythema. No thyromegaly. CARDIOVASCULAR: S1 and S2 present. No murmurs, rubs, or gallops. PULMONARY: Chest is clear to auscultation, no wheezing or crackles. ABDOMEN: Soft, nontender, nondistended, normoactive bowel sounds. No palpable organomegaly. MUSCULOSKELETAL: No joint swelling or deformity. EXTREMITIES: No cyanosis, clubbing, or pedal edema. NEUROLOGICAL: Gross neurological examination did not reveal any focal deficits. SKIN: No rashes. Dictation was produced using [employer] dictation software. please excuse any grammatical, word or spelling errors. Patient Condition at Discharge: Fair Plan - Discharge Summary Discharge Rx Participant: Yes New Discharge Prescriptions: Continue Aspirin EC [Ecotrin Low Dose] 81 mg PO DAILY Naltrexone HCl [Revia] 50 mg PO DAILY 14 Days #14 tab cloNIDine HCL [Catapres] 0.1 mg PO TID #90 tab DULoxetine HCL [Cymbalta] 30 mg PO BID 14 Days #28 cap amLODIPine [Norvasc] 10 mg PO DAILY 30 Days #30 tab QUEtiapine [SEROquel] 50 mg PO HS 14 Days #14 tab methocarbamoL [Robaxin-750] 750 mg PO Q6H PRN PRN Reason: Muscle Spasm LORazepam [Ativan] 1 mg PO BID PRN #6 tab PRN Reason: Agitation Or Acute Anxiety Folic Acid 1 mg PO DAILY #30 tab Pantoprazole [Protonix] 40 mg PO AC-BRKFST 30 Days #30 tab Thiamine [Vitamin B-1] 100 mg PO DAILY #30 tablet lisinopriL [Zestril] 10 mg PO DAILY #30 tab Discharge Medication List Aspirin EC [Ecotrin Low Dose] 81 mg PO DAILY 06/15/24 [History] methocarbamoL [Robaxin-750] 750 mg PO Q6H PRN 07/01/24 [History] LORazepam [Ativan] 1 mg PO BID PRN #6 tab 07/03/24 [Rx] Naltrexone HCl [Revia] 50 mg PO DAILY 14 Days #14 tab 07/22/24 [Rx] DULoxetine HCL [Cymbalta] 30 mg PO BID 14 Days #28 cap 08/26/24 [Rx] Folic Acid 1 mg PO DAILY #30 tab 08/26/24 [Rx] Pantoprazole [Protonix] 40 mg PO AC-BRKFST 30 Days #30 tab 08/26/24 [Rx] QUEtiapine [SEROquel] 50 mg PO HS 14 Days #14 tab 08/26/24 [Rx] Thiamine [Vitamin B-1] 100 mg PO DAILY #30 tablet 08/26/24 [Rx] amLODIPine [Norvasc] 10 mg PO DAILY 30 Days #30 tab 08/26/24 [Rx] cloNIDine HCL [Catapres] 0.1 mg PO TID #90 tab 08/26/24 [Rx] lisinopriL [Zestril] 10 mg PO DAILY #30 tab 08/26/24 [Rx] Follow up Appointment(s)/Referral(s): Mahesh Ramos DO [Primary Care Provider] - 1-2 days Discharge/Stand Alone Forms: AA Jessie Ramirez, Outpatient Counseling, In Substance Abuse Facilities Discharge Disposition: HOME SELF-CARE
== END 2024-08-26 16:34 | disposition home or self-care (01) ==
LOC: EC 23:59 → 5NMEDONC 08-23 00:21 → 4SSUR 08-23 19:32
PROVIDERS: ADMIT Hospitalist; ATTEND Hospitalist
DX: F10.229 Alcohol dependence with intoxication, unspecified (principal); I10 Essential (primary) hypertension; J44.9 Chronic obstructive pulmonary disease, unspecified; F32.9 Major depressive disorder, single episode, unspecified; F41.8 Other specified anxiety disorders; F17.200 Nicotine dependence, unspecified, uncomplicated; Y90.8 Blood alcohol level of 240 mg/100 ml or more; Z79.82 Long term (current) use of aspirin; Z79.899 Other long term (current) drug therapy; Z88.0 Allergy status to penicillin
CPT/HCPCS: 96376 ×4; 96374 ×2; 96361; 96375; 99284; 80053 ×2; 83690; 83735; 84100; 85025 ×2; G0378 ×5; G0480; S4990 ×4; J2060 ×3; J0360; J2405; J2470; 80320